=== PATIENT | male | born 1985 | race African-American/Black ===

== ENCOUNTER 2018-01-23 19:06 | Emergency (ER) | payer SELFPAY ==
[~2018-01-23 19:06] MED LIST: ACE325 PO; ACET500T68 PO; CALC-515 PO; CYCL10TA29 PO; DIA5 PO; DULO30CA35 PO; GABA-503 PO; GABA-549 PO; HYDR-3087 PO; HYDR-3250 PO; HYDR-385 PO; IBU800 PO; IBUP-1618 PO; IBUP200C71 PO; IBUP800T37 PO; KETO-58 PO; LOR5 PO; LOR5/325 PO; MENT1ADH TP; MET800 PO; NAPR500T31 PO; NO ROUTINE MEDS; ONDA4TAB PO; OXYC-373 PO; PER PO; PRE10 PO; PRED20TA6 PO; Return to work; TRAM-420 PO
--- NOTE | 2018-01-23 19:21 | ER Report ---
History and Physical Time Seen By MD: 19:21 Hx. of Stated Complaint: "I HAVE A ALCOHOL PROBLEM AND FEEL LIKE MY LIVER IS GOING TO " "I NEED HELP" HPI/ROS CHIEF COMPLAINT: Alcohol detox HISTORY OF PRESENT ILLNESS: 32-year-old male patient presents to emergency room with complaint of wanting to detox from alcohol. Patient states he drinks significantly every day and has for the past 1617 years. Patient states he typically will drink to 40s of beer as well as 12 shots of whiskey. Patient denies having any nausea, vomiting with this. Patient states that he has seen a primary care provider who did check labs. He was told by them that his liver is already damaged by this and he needs to quit drinking before his liver is permanently damage. Patient states that he has been having some abdominal pain, especially in the right upper and left upper walk since. Patient states that he was prescribed a medication for hypertension but has not taken it. REVIEW OF SYSTEMS: Respiratory: No cough, no dyspnea. Cardiovascular: No chest pain, no palpitations. Gastrointestinal: As noted above Musculoskeletal: No back pain. Allergies: Coded Allergies: ibuprofen (Verified Allergy, Intermediate, HIVES, 06/23/16) hydrocodone (Verified Adverse Reaction, Unknown, NAUSEA/VOMITING, 06/23/16) tramadol (Verified Adverse Reaction, Unknown, NAUSEA/VOMITING, 06/23/16) Home Meds Discontinued Scripts Oxycodone Hcl/Acetaminophen (OXYCODONE-ACETAMINOPHEN 5-325) 1 Each Tablet, 1-2 TAB PO Q6H Y for PAIN, #60 TAB 0 Refills Prov:[facility]I [facility]AM DNP, [facility] 07/16/16 Cyclobenzaprine Hcl (CYCLOBENZAPRINE HCL) 10 Mg Tablet, 10 MG PO TID for Muscle Relaxant, #30 TAB Prov:DEEPTHI GRESHAM DNP, FNP- 07/16/16 Gabapentin (GABAPENTIN) 600 Mg Tablet, 1 TAB PO BID, #60 TAB 1 Refill Prov:DEEPTHI GRESHAM DNP [facility] 07/16/16 Past Medical/Surgical History Patient has a past medical history of hypertension, back pain, marijuana and exceeded abuse in the past, alcohol use. Patient has no pertinent surgical history. Reviewed Nurses Notes: Yes Hx Smoking: Yes Smoking Status: Current: Every Day Smoker Exposure to Second Hand Smoke?: No Hx Substance Use Disorder: Yes (MARIJUANNA, AND ECSTASY IN THE PAST) Hx Alcohol Use: Yes (FREQUENTLY, ALMOST EVERY DAY) Constitutional Vital Sign - Last 24 Hours 01/23/18 19:14 Temp 98.4 Pulse 90 Resp 14 B/P (MAP) 160/107 Pulse Ox 95 O2 Delivery Room Air Physical Exam General Appearance: The patient is alert, has no immediate need for airway protection and no current signs of toxicity. ENT: Tympanic membranes are pearly-devi, auditory canals are patent, mucous membranes are moist. Respiratory: Chest is non tender, lungs are clear to auscultation. Cardiac: regular rate and rhythm Gastrointestinal: Abdomen is soft and mildly tender in the bilateral upper quadrants, no masses, bowel sounds normal. Musculoskeletal: Neck: Neck is supple and non tender. Extremities have full range of motion and are non tender. Skin: No rashes or lesions. DIFFERENTIAL DIAGNOSIS: After history and physical exam differential diagnosis was considered for alcohol abuse, depression, intoxication. Medical Decision Making Data Points Result Diagram: 01/23/18191901/23/181919 Laboratory Hematology Test 01/23/18 19:20 01/23/18 19:35 Red Blood Count 5.44 M/uL (4.00-5.60) Mean Corpuscular Volume 88.6 fL (80.0-96.0) Mean Corpuscular Hemoglobin 30.4 pg (26.0-33.0) Mean Corpuscular Hemoglobin Concent 34.3 g/dL (32.0-36.0) Red Cell Distribution Width 13.9 % (11.5-14.5) Mean Platelet Volume 8.2 fL (7.2-11.1) Neutrophils (%) (Auto) 48.2 % (39.4-72.5) Lymphocytes (%) (Auto) 35.1 % (17.6-49.6) Monocytes (%) (Auto) 14.5 % (4.1-12.4) Eosinophils (%) (Auto) 1.4 % (0.4-6.7) Basophils (%) (Auto) 0.8 % (0.3-1.4) Nucleated RBC Relative Count (auto) 0.1 /100WBC Neutrophils # (Auto) 3.3 K/uL (2.0-7.4) Lymphocytes # (Auto) 2.4 K/uL (1.3-3.6) Monocytes # (Auto) 1.0 K/uL (0.3-1.0) Eosinophils # (Auto) 0.1 K/uL (0.0-0.5) Basophils # (Auto) 0.1 K/uL (0.0-0.1) Nucleated RBC Absolute Count (auto) 0.00 K/uL Sodium Level 143 mmol/L (137-145) Potassium Level 2.9 mmol/L (3.5-5.0) Chloride Level 106 mmol/L (98-107) Carbon Dioxide Level 21 mmol/L (22-30) Blood Urea Nitrogen 6 mg/dl (9-21) Creatinine 0.80 mg/dl (0.66-1.25) Glomerular Filtration Rate Calc > 60.0 Random Glucose 94 mg/dl (75-110) Calcium Level 9.5 mg/dl (8.4-10.2) Magnesium Level 1.8 mg/dl (1.7-2.2) Total Bilirubin 0.6 mg/dl (0.2-1.3) Aspartate Amino Transf (AST/SGOT) 169 U/L (0-35) Alanine Aminotransferase (ALT/SGPT) 107 U/L (0-56) Alkaline Phosphatase 86 U/L (0-126) Total Protein 7.4 gm/dl (6.3-8.2) Albumin 4.1 g/dl (3.5-5.0) Amylase Level 95 U/L (0-110) Lipase 298 U/L (23-300) Salicylates Level < 10 mg/L Salicylate Last Dose Date unk Acetaminophen Level < 10 ug/ml Serum Alcohol 254 mg/dl Urine Color Straw Urine Clarity Clear Urine pH 6.0 pH (4.8-9.5) Urine Specific [place] 1.004 Urine Protein Negative mg/dL (NEGATIVE) Urine Glucose (UA) Negative mg/dL (NEGATIVE) Urine Ketones Negative mg/dL (NEGATIVE) Urine Blood Negative (NEGATIVE) Urine Nitrite Negative (NEGATIVE) Urine Bilirubin Negative (NEGATIVE) Urine Urobilinogen 4.0 mg/dL (0.2-1.9) Urine Leukocyte Esterase Negative (NEGATIVE) Urine RBC <1 /HPF (0-2/HPF) Urine WBC None /HPF (0-5/HPF) Urine Squamous Epithelial Cells None /LPF (</=FEW) Urine Bacteria Negative /HPF (NONE-FEW) Urine Mucus None /HPF (NONE-FEW) Urine Opiates Screen Negative Urine Barbiturates Screen Negative Ur Tricyclic Antidepressants Screen Negative Urine Phencyclidine Screen Negative Urine Amphetamines Screen Negative Urine Benzodiazepines Screen Negative Urine Cocaine Screen Negative Urine Cannabinoids Screen Negative Chemistry Test 01/23/18 19:20 01/23/18 19:35 White Blood Count 6.9 k/uL (4.5-11.0) Red Blood Count 5.44 M/uL (4.00-5.60) Hemoglobin 16.6 g/dL (14.0-18.0) Hematocrit 48.2 % (42.0-52.0) Mean Corpuscular Volume 88.6 fL (80.0-96.0) Mean Corpuscular Hemoglobin 30.4 pg (26.0-33.0) Mean Corpuscular Hemoglobin Concent 34.3 g/dL (32.0-36.0) Red Cell Distribution Width 13.9 % (11.5-14.5) Platelet Count 177 K/uL (150-450) Mean Platelet Volume 8.2 fL (7.2-11.1) Neutrophils (%) (Auto) 48.2 % (39.4-72.5) Lymphocytes (%) (Auto) 35.1 % (17.6-49.6) Monocytes (%) (Auto) 14.5 % (4.1-12.4) Eosinophils (%) (Auto) 1.4 % (0.4-6.7) Basophils (%) (Auto) 0.8 % (0.3-1.4) Nucleated RBC Relative Count (auto) 0.1 /100WBC Neutrophils # (Auto) 3.3 K/uL (2.0-7.4) Lymphocytes # (Auto) 2.4 K/uL (1.3-3.6) Monocytes # (Auto) 1.0 K/uL (0.3-1.0) Eosinophils # (Auto) 0.1 K/uL (0.0-0.5) Basophils # (Auto) 0.1 K/uL (0.0-0.1) Nucleated RBC Absolute Count (auto) 0.00 K/uL Glomerular Filtration Rate Calc > 60.0 Calcium Level 9.5 mg/dl (8.4-10.2) Magnesium Level 1.8 mg/dl (1.7-2.2) Total Bilirubin 0.6 mg/dl (0.2-1.3) Aspartate Amino Transf (AST/SGOT) 169 U/L (0-35) Alanine Aminotransferase (ALT/SGPT) 107 U/L (0-56) Alkaline Phosphatase 86 U/L (0-126) Total Protein 7.4 gm/dl (6.3-8.2) Albumin 4.1 g/dl (3.5-5.0) Amylase Level 95 U/L (0-110) Lipase 298 U/L (23-300) Salicylates Level < 10 mg/L Salicylate Last Dose Date unk Acetaminophen Level < 10 ug/ml Serum Alcohol 254 mg/dl Urine Color Straw Urine Clarity Clear Urine pH 6.0 pH (4.8-9.5) Urine Specific [place] 1.004 Urine Protein Negative mg/dL (NEGATIVE) Urine Glucose (UA) Negative mg/dL (NEGATIVE) Urine Ketones Negative mg/dL (NEGATIVE) Urine Blood Negative (NEGATIVE) Urine Nitrite Negative (NEGATIVE) Urine Bilirubin Negative (NEGATIVE) Urine Urobilinogen 4.0 mg/dL (0.2-1.9) Urine Leukocyte Esterase Negative (NEGATIVE) Urine RBC <1 /HPF (0-2/HPF) Urine WBC None /HPF (0-5/HPF) Urine Squamous Epithelial Cells None /LPF (</=FEW) Urine Bacteria Negative /HPF (NONE-FEW) Urine Mucus None /HPF (NONE-FEW) Urine Opiates Screen Negative Urine Barbiturates Screen Negative Ur Tricyclic Antidepressants Screen Negative Urine Phencyclidine Screen Negative Urine Amphetamines Screen Negative Urine Benzodiazepines Screen Negative Urine Cocaine Screen Negative Urine Cannabinoids Screen Negative Toxicology Test 01/23/18 19:20 01/23/18 19:35 Salicylates Level < 10 mg/L Salicylate Last Dose Date unk Acetaminophen Level < 10 ug/ml Serum Alcohol 254 mg/dl Urine Opiates Screen Negative Urine Barbiturates Screen Negative Ur Tricyclic Antidepressants Screen Negative Urine Phencyclidine Screen Negative Urine Amphetamines Screen Negative Urine Benzodiazepines Screen Negative Urine Cocaine Screen Negative Urine Cannabinoids Screen Negative Urinalysis Test 01/23/18 19:35 Urine Color Straw Urine Clarity Clear Urine pH 6.0 pH (4.8-9.5) Urine Specific [place] 1.004 Urine Protein Negative mg/dL (NEGATIVE) Urine Glucose (UA) Negative mg/dL (NEGATIVE) Urine Ketones Negative mg/dL (NEGATIVE) Urine Blood Negative (NEGATIVE) Urine Nitrite Negative (NEGATIVE) Urine Bilirubin Negative (NEGATIVE) Urine Urobilinogen 4.0 mg/dL (0.2-1.9) Urine Leukocyte Esterase Negative (NEGATIVE) Urine RBC <1 /HPF (0-2/HPF) Urine WBC None /HPF (0-5/HPF) Urine Squamous Epithelial Cells None /LPF (</=FEW) Urine Bacteria Negative /HPF (NONE-FEW) Urine Mucus None /HPF (NONE-FEW) ED Course/Re-evaluation ED Course Patient was admitted exam room, history and physical were obtained. Differential diagnoses were considered. On examination patient is intoxicated, does have slightly slurred speech, does smell of alcohol. Patient initially states that he would like to be admitted to [facility]. The lab work for a behavioral [facility] was ordered. Results came back he did have a low potassium of 2.9. He received a potassium 20 mEq tablet here in the emergency room. Patient did discuss with the psychiatric mental health nurse from the behavioral health unit. He was bucking at signing him. He states that he was not ready to commit to being put into a locked unit. He states it is very similar to when he had his DUI. He states he is struggling with the breakup with his significant other. He is unsure. I did give him some additional time to think about whether he wanted to be admitted one to go home. He ultimately decided that he would like to go home. We'll go ahead and treat him with potassium for his low potassium. I would like him follow-up with his primary care provider the next 3-5 days for further evaluation and repeat that test. Discussed this with the patient who verbalized understanding and agreement with plan. Decision to Disposition Date: January 23, 2018 Decision to Disposition Time: 20:58 Depart Departure Latest Vital Signs Vital Signs Date Time Temp Pulse Resp B/P (MAP) Pulse Ox O2 Delivery O2 Flow Rate FiO2 01/23/18 19:14 98.4 90 14 160/107 95 Room Air Impression: Primary Impression: Alcohol intoxication Additional Impression: Hypokalemia Condition: Condition Unchanged Disposition: HOME OR SELF-CARE Referrals: DEEPTHI GRESHAM DNP, [facility] (PCP) New Scripts Potassium Chloride (KLOR-CON M20) 20 Meq Tab.er.prt 20 MEQ PO QDAY, #30 TAB.SR.24H Prov: RAVEN SANABRIA 01/23/18 Patient Instructions: Alcohol Intoxication (ED) Additional Instructions: Continue with normal diet. Avoid alcohol. Return to the ER if condition worsens. Take medication as prescribed. Follow up with your primary care provider in the next 1-2 weeks. Get plenty of rest. You may follow up with [facility] for assistance with alcohol withdrawal, ie counseling. Problem Qualifiers Primary Impression: Alcohol intoxication Complication of substance-induced condition: uncomplicated Qualified Codes: F10.920 - Alcohol use, unspecified with intoxication, uncomplicated RAVEN SANABRIA January 23, 2018 19:21
[2018-01-23 19:45] LABS: PLATELET COUNT, AUTOMATED 177 K/uL (150-450)
[2018-01-23] MEDS ORDERED: POTASSIUM CHL 20 MEQ TABCR PO ONE (20:00)
[2018-01-23 20:30] VITALS: BP 151/91
[2018-01-23] MEDS ORDERED: POTA20TA85 PO (21:02)
== END 2018-01-23 21:13 | disposition home or self-care (01) ==
LOC: ER 19:33
DX: F10.920 Alcohol use, unspecified with intoxication, uncomplicated (principal); E87.6 Hypokalemia; I10 Essential (primary) hypertension
CPT/HCPCS: 36415; 80305; 80320; 80329; 81001; 82040; 82150; 82247; 82310; 82374; 82435; 82565; 82947; 83690; 83735; 84075; 84132; 84155; 84295; 84443; 84450; 84460; 84520; 85025; 99283

== ENCOUNTER 2018-03-15 17:14 | Emergency (ER) | payer SELFPAY ==
[~2018-03-15 17:14] MED LIST changes: +POTA20TA85 PO
--- NOTE | 2018-03-15 17:24 | ER Report ---
History and Physical Time Seen By MD: 17:23 HPI/ROS CHIEF COMPLAINT: Shortness of breath HISTORY OF PRESENT ILLNESS: This is a 32-year-old male presents to the emergency department for shortness of breath. Patient states that would last several days he's had an increase in shortness breath more so today since about 9:00 this morning. Patient also states over the last 2-3 days he's had some increased chest pain bandlike across to his anterior chest. Patient states he has high anxiety, has a lot of life stressors right now and thinks this could be related to his anxiety but is unsure. Patient was sent from the [facility] today. Patient also states that he started a new blood pressure medication today and is unsure what the medication is. Patient also states that he has had issues with drinking L call in the past, the last time he had anything to drink was about 3 days ago. No vomiting however he does have nausea intermittently. No dysuria or diarrhea or blood in the stools. No fevers or chills. No headaches. No rashes. REVIEW OF SYSTEMS: Constitutional: No fever, no chills. Eyes: No discharge. ENT: No sore throat. Cardiovascular: As above. Respiratory: As above. Gastrointestinal: No abdominal pain, no vomiting. Genitourinary: No hematuria. Musculoskeletal: No back pain. Skin: No rashes. Neurological: No headache. Allergies: Coded Allergies: ibuprofen (Verified Allergy, Intermediate, HIVES, 03/15/18) hydrocodone (Verified Adverse Reaction, Unknown, NAUSEA/VOMITING, 03/15/18) tramadol (Verified Adverse Reaction, Unknown, NAUSEA/VOMITING, 03/15/18) Home Meds Reported Medications [Bp Med] No Conflict Check 03/15/18 Discontinued Scripts Potassium Chloride (KLOR-CON M20) 20 Meq Tab.er.prt, 20 MEQ PO QDAY, #30 TAB.SR.24H Prov:RAVEN SANABRIA 01/23/18 Past Medical/Surgical History Patient has a past medical and surgical history of hypertension, back pain, polysubstance abuse, alcohol abuse, anxiety, Reviewed Nurses Notes: Yes Hx Smoking: Yes Smoking Status: Current: Every Day Smoker Exposure to Second Hand Smoke?: No Hx Substance Use Disorder: Yes (MARIJUANNA, AND ECSTASY IN THE PAST) Hx Alcohol Use: Yes (FREQUENTLY, ALMOST EVERY DAY) Constitutional Vital Sign - Last 24 Hours 03/15/18 03/15/18 03/15/18 03/15/18 17:20 17:23 17:26 17:30 Temp 98.8 Pulse 78 Resp 20 B/P (MAP) 147/94 (111) 147/94 149/94 (112) 147/93 (111) Pulse Ox 94 O2 Delivery Room Air 03/15/18 03/15/18 03/15/18 03/15/18 17:44 18:00 18:14 18:19 Pulse 59 55 ??? Resp 11 7 16 B/P (MAP) 123/82 (96) Pulse Ox 97 98 99 03/15/18 03/15/18 03/15/18 03/15/18 18:30 18:49 19:00 19:04 Pulse 64 ??? Resp 15 21 B/P (MAP) 135/118 (124) 143/105 (118) Pulse Ox 97 97 03/15/18 03/15/18 03/15/18 03/15/18 19:19 19:30 19:34 19:49 Pulse ??? 62 75 Resp 9 18 B/P (MAP) 157/116 (130) Pulse Ox 96 97 03/15/18 03/15/18 20:00 20:04 Pulse 65 Resp 16 B/P (MAP) 146/122 (130) Pulse Ox 97 Physical Exam General Appearance: The patient is alert, has no immediate need for airway protection and no signs of toxicity. Eyes: Pupils equal and round no pallor or injection. ENT, Mouth: Mucous membranes are dry. Respiratory: There are no retractions, lungs are clear to auscultation. Cardiovascular: Regular rate and rhythm, no murmurs, clicks or rubs. Gastrointestinal: Abdomen is soft and non tender, no masses, bowel sounds normal. Neurological: Alert and oriented 4. Moving all extremities. Following all commands. No focal neuro deficits. Skin: Warm and dry, no rashes. Musculoskeletal: Neck is supple non tender. Extremities are nontender, nonswollen and have full range of motion. DIFFERENTIAL DIAGNOSIS: After history and physical exam differential diagnosis was considered for shortness of breath including but not limited to pulmonary infectious process, COPD, asthma, pulmonary embolus and congestive heart failure. Medical Decision Making Data Points Result Diagram: 03/15/18 17503/15/18 175 Laboratory Hematology Test 03/15/18 17:50 Red Blood Count 5.46 M/uL (4.00-5.60) Mean Corpuscular Volume 89.3 fL (80.0-96.0) Mean Corpuscular Hemoglobin 31.1 pg (26.0-33.0) Mean Corpuscular Hemoglobin Concent 34.9 g/dL (32.0-36.0) Red Cell Distribution Width 14.0 % (11.5-14.5) Mean Platelet Volume 8.1 fL (7.2-11.1) Neutrophils (%) (Auto) 29.2 % (39.4-72.5) Lymphocytes (%) (Auto) 51.9 % (17.6-49.6) Monocytes (%) (Auto) 16.0 % (4.1-12.4) Eosinophils (%) (Auto) 1.4 % (0.4-6.7) Basophils (%) (Auto) 1.5 % (0.3-1.4) Nucleated RBC Relative Count (auto) 0.0 /100WBC Neutrophils # (Auto) 1.2 K/uL (2.0-7.4) Lymphocytes # (Auto) 2.1 K/uL (1.3-3.6) Monocytes # (Auto) 0.7 K/uL (0.3-1.0) Eosinophils # (Auto) 0.1 K/uL (0.0-0.5) Basophils # (Auto) 0.1 K/uL (0.0-0.1) Nucleated RBC Absolute Count (auto) 0.00 K/uL D-Dimer Quantitative (PE/DVT) 0.99 ug/ml (0-0.50) Sodium Level 146 mmol/L (137-145) Potassium Level 3.1 mmol/L (3.5-5.0) Chloride Level 109 mmol/L (98-107) Carbon Dioxide Level 24 mmol/L (22-30) Blood Urea Nitrogen 6 mg/dl (9-21) Creatinine 0.70 mg/dl (0.66-1.25) Glomerular Filtration Rate Calc > 60.0 Random Glucose 98 mg/dl (75-110) Calcium Level 8.8 mg/dl (8.4-10.2) Total Bilirubin 0.7 mg/dl (0.2-1.3) Aspartate Amino Transf (AST/SGOT) 215 U/L (0-35) Alanine Aminotransferase (ALT/SGPT) 118 U/L (0-56) Alkaline Phosphatase 110 U/L (0-126) Troponin I < 0.012 ng/ml Total Protein 7.4 g/dl (6.3-8.2) Albumin 4.1 g/dl (3.5-5.0) Serum Alcohol 289 mg/dl Chemistry Test 03/15/18 17:50 White Blood Count 4.1 k/uL (4.5-11.0) Red Blood Count 5.46 M/uL (4.00-5.60) Hemoglobin 17.0 g/dL (14.0-18.0) Hematocrit 48.7 % (42.0-52.0) Mean Corpuscular Volume 89.3 fL (80.0-96.0) Mean Corpuscular Hemoglobin 31.1 pg (26.0-33.0) Mean Corpuscular Hemoglobin Concent 34.9 g/dL (32.0-36.0) Red Cell Distribution Width 14.0 % (11.5-14.5) Platelet Count 189 K/uL (150-450) Mean Platelet Volume 8.1 fL (7.2-11.1) Neutrophils (%) (Auto) 29.2 % (39.4-72.5) Lymphocytes (%) (Auto) 51.9 % (17.6-49.6) Monocytes (%) (Auto) 16.0 % (4.1-12.4) Eosinophils (%) (Auto) 1.4 % (0.4-6.7) Basophils (%) (Auto) 1.5 % (0.3-1.4) Nucleated RBC Relative Count (auto) 0.0 /100WBC Neutrophils # (Auto) 1.2 K/uL (2.0-7.4) Lymphocytes # (Auto) 2.1 K/uL (1.3-3.6) Monocytes # (Auto) 0.7 K/uL (0.3-1.0) Eosinophils # (Auto) 0.1 K/uL (0.0-0.5) Basophils # (Auto) 0.1 K/uL (0.0-0.1) Nucleated RBC Absolute Count (auto) 0.00 K/uL D-Dimer Quantitative (PE/DVT) 0.99 ug/ml (0-0.50) Glomerular Filtration Rate Calc > 60.0 Calcium Level 8.8 mg/dl (8.4-10.2) Total Bilirubin 0.7 mg/dl (0.2-1.3) Aspartate Amino Transf (AST/SGOT) 215 U/L (0-35) Alanine Aminotransferase (ALT/SGPT) 118 U/L (0-56) Alkaline Phosphatase 110 U/L (0-126) Troponin I < 0.012 ng/ml Total Protein 7.4 g/dl (6.3-8.2) Albumin 4.1 g/dl (3.5-5.0) Serum Alcohol 289 mg/dl Coagulation Test 03/15/18 17:50 D-Dimer Quantitative (PE/DVT) 0.99 ug/ml Toxicology Test 03/15/18 17:50 Serum Alcohol 289 mg/dl EKG/Imaging EKG Interpretation 12 lead EKG: Time of EKG 1751. Rhythm: Normal sinus rhythm, ventricular rate 66 bpm. [place]: normal QRS: normal ST segments: Probable early repolarization, with J-point elevation in V2 V3. No ST elevation or depression identified. Imaging Location: [facility] [place] Patient: Ezekiel Unger : 1985 Visit/Account:[id number] Date of Sevice: 03/15/2018 Chest 2 views: HISTORY: Started new blood pressure meds this morning patient states "doesn't feel right" COMPARISON: None. FINDINGS: Frontal and lateral chest: Cardiomediastinal silhouette is within normal limits. There is no infiltrate or pleural effusion. No pneumothorax. Pulmonary vasculature is normal. Osseous structures are unremarkable. IMPRESSION: No evidence of acute cardiopulmonary abnormality. Report Dictated By: Jenna Pennington MD at 03/15/2018 7:12 PM Report E-Signed By: Jenna Pennington MD at 03/15/2018 7:14 PM [id number] EXAMINATION: CTA of the chest with IV contrast HISTORY: Started new blood pressure medication this morning. "Doesn't feel right." Evaluate for pulmonary embolism. TECHNIQUE: Pulmonary embolus protocol - Thin axial CT images of the chest were obtained with IV contrast during maximal pulmonary arterial opacification. Reconstruction of the source data includes multiplanar 2D coronal and sagittal reconstructed images, and 3D coronal and sagittal MIP images. [employer] images have been stored on PACS. One of the following dose optimization techniques was utilized in the performance of this exam: Automated exposure control; adjustment of the mA and/ or kV according to the patient's size; or use of an iterative reconstruction technique. Specific details can be referenced in the facility's radiology CT exam operational policy. Contrast: 75 mL of IV Isovue-370. COMPARISON: None. FINDINGS: Pulmonary arteries: The pulmonary arteries are well opacified, without suspicious filling defect. Heart, aorta, and great vessels: Normal caliber thoracic aorta. Normal heart size. No pericardial effusion. Lungs and pleura: The lungs are clear. No focal consolidation. No pleural effusion or pneumothorax. The central airways are patent. Mediastinum and matt: Negative. Visualized upper abdomen: Fatty infiltration of the liver. Chest wall: Negative. Bones: Negative. IMPRESSION: 1. No evidence of pulmonary embolism. 2. No other acute findings in the chest. The lungs are clear. 3. Diffuse hepatic steatosis. Report Dictated By: Santino Celis MD at 03/15/2018 7:42 PM Report E-Signed By: Santino Celis MD at 03/15/2018 7:46 PM [id number] ED Course/Re-evaluation Clinical Indication for ER IV: Hydration, IV Access ED Course The patient was admitted to a room. A history physical were obtained. Differential diagnoses were considered. An IV was started. A CBC, CMP, d-dimer and troponin were obtained. CBC showing wbc's 4.1, chemistry showing sodium 146 , potassium 3.1 AST 2:15, ALT 118 d-dimer 0.99 serum alcohol 289. Patient did tell me that his last alcohol intake was 2-3 days ago. Two-view chest x-ray was negative for any acute cardiopulmonary processes. CTA of the chest was negative for pulmonary embolus. I did review these results with the patient. I did also tell the patient that his serum alcohol was elevated, he did tell me that he did do some sugars today, he said "I'm sorry I didn't tell you the truth earlier ". I did tell patient that the chest pain that he is experiencing today could be secondary to his anxiety as well as the blood pressure medications as body adjusting to these, I also instructed patient to follow up with his psychiatrist as scheduled tomorrow as well as his counselor on Tuesday. I instructed the patient to try to cut back on his alcohol consumption. Patient expressed understanding, had no other questions or concerns at this time and was discharged home. 03/15/2018 6:46:44 pm I did review the lab studies with the patient, in particular the elevated d-dimer at syrup 0.99. I did tell the patient that with the elevation and the d-dimer as well as his shortness of breath go ahead and proceed with a CT of the chest looking for a clot. Patient is in agreement with this plan of care. Patient is also sitting up in bed, playing chess with a friend, laughing, does not appear to be in any distress. Decision to Disposition Date: Mar 15, 2018 Decision to Disposition Time: 19:59 Depart Departure Latest Vital Signs Vital Signs Date Time Temp Pulse Resp B/P (MAP) Pulse Ox O2 Delivery O2 Flow Rate FiO2 03/15/18 20:04 65 16 97 03/15/18 20:00 146/122 (130) 03/15/18 17:23 98.8 Room Air Impression: Primary Impression: Alcohol abuse Additional Impressions: Anxiety Hypertension Condition: Improved Disposition: HOME OR SELF-CARE Patient Instructions: Abuse of Alcohol (ED), Anxiety (ED), Hypertension (ED) Additional Instructions: Drink plenty of water, especially if your working outside. Get plenty of rest. Continue taking the blood pressure medications as prescribed. Follow-up with your psychologist tomorrow as scheduled. Continue trying to cut back on your alcohol use. Follow-up with your counseling as scheduled on Tuesday. Return to the emergency department for any other concerns or worsening symptoms. Problem Qualifiers Additional Impressions: Hypertension Hypertension type: unspecified Qualified Codes: I10 - Essential (primary) hypertension JENNIFER ASTORGA [facility]ED [facility] Mar 15, 2018 17:24
[2018-03-15] MEDS ORDERED: BP MED (17:30)
[2018-03-15] MEDS ORDERED: NS(*) 0.9% 1000 ML BAG 1,000 ML IV ONE (17:42)
--- NOTE | 2018-03-15 17:56 | EKG ---
FACILITY: [facility] - [place] PATIENT NAME: FIORELLA ALANIZ : [id number] MR: [id number] V: [id number] EXAM DATE: ORDERING PHYSICIAN: JENNIFER ASTORGA TECHNOLOGIST: DARRELL Blue Reason : SOB Blood Pressure : / mmHG Vent. Rate : 066 BPM Atrial Rate : 066 BPM P-R Int : 174 ms QRS Dur : 080 ms QT Int : 410 ms P-R-T Axes : 080 054 068 degrees QTc Int : 429 ms Normal sinus rhythm Septal infarct , age undetermined vs lead placement No ST-T abnormalities No previous ECGs available Confirmed by VIRGILIO SHAHID ([id number]) on 03/15/2018 6:59:39 PM Referred By: Confirmed By:VIRGILIO SHAHID
[2018-03-15 18:06] LABS: PLATELET COUNT, AUTOMATED 189 K/uL (150-450)
[2018-03-15] MEDS ORDERED: NS 0.9% 25 ML BAG 50 ML ONE (18:59)
[2018-03-15] MEDS ORDERED: IOPAMIDOL 76% 75 ML INFUS BTL 75 ML ONE (18:59)
--- NOTE | 2018-03-15 19:17 | RADIOLOGY IMAGING REPORT ---
FACILITY: [facility] PATIENT NAME: Ezekiel Unger : 1985 MR: [id number] V: [id number] EXAM DATE: ORDERING PHYSICIAN: JENNIFER ASTORGA TECHNOLOGIST: Location: [facility] - [place] Patient: Ezekiel Unger : 1985 Visit/Account:[id number] Date of Sevice: 03/15/2018 Chest 2 views: HISTORY: Started new blood pressure meds this morning patient states "doesn't feel right" COMPARISON: None. FINDINGS: Frontal and lateral chest: Cardiomediastinal silhouette is within normal limits. There is n o infiltrate or pleural effusion. No pneumothorax. Pulmonary vasculature is normal. Osseous structures are unremarkable. IMPRESSION: No evidence of acute cardiopulmonary abnormality. Report Dictated By: Jenna Pennington MD at 03/15/2018 7:12 PM Report E-Signed By: Jenna Pennington MD at 03/15/2018 7:14 PM WSN:[id number]
--- NOTE | 2018-03-15 19:49 | RADIOLOGY IMAGING REPORT ---
FACILITY: [facility] - [place] PATIENT NAME: Ezekiel Unger : 1985 MR: [id number] V: [id number] EXAM DATE: ORDERING PHYSICIAN: JENNIFER ASTORGA TECHNOLOGIST: Location: [facility] [place] Patient: Ezekiel Unger : 1985 Visit/Account:[id number] Date of Sevice: 03/15/2018 EXAMINATION: CTA of the chest with IV contrast HISTORY: Started new blood pressure medication this morning. "Doesn't feel right." Evaluate for pulm onary embolism. TECHNIQUE: Pulmonary embolus protocol - Thin axial CT images of the chest were obtained with IV con trast during maximal pulmonary arterial opacification. Reconstruction of the source data includes mul tiplanar 2D coronal and sagittal reconstructed images, and 3D coronal and sagittal MIP images. Repres entative images have been stored on PACS. One of the following dose optimization techniques was utilized in the performance of this exam: Autom ated exposure control; adjustment of the mA and/or kV according to the patient's size; or use of an i terative reconstruction technique. Specific details can be referenced in the facility's radiology C T exam operational policy. Contrast: 75 mL of IV [id number]. COMPARISON: None. FINDINGS: Pulmonary arteries: The pulmonary arteries are well opacified, without suspicious filling defect. Heart, aorta, and great vessels: Normal caliber thoracic aorta. Normal heart size. No pericardial ef fusion. Lungs and pleura: The lungs are clear. No focal consolidation. No pleural effusion or pneumothorax. The central airways are patent. Mediastinum and matt: Negative. Visualized upper abdomen: Fatty infiltration of the liver. Chest wall: Negative. Bones: Negative. IMPRESSION: 1. No evidence of pulmonary embolism. 2. No other acute findings in the chest. The lungs are clear. 3. Diffuse hepatic steatosis. Report Dictated By: Santino Celis MD at 03/15/2018 7:42 PM Report E-Signed By: Santino Celis MD at 03/15/2018 7:46 PM WSN:[id number]
[2018-03-15 20:00] VITALS: BP 146/122
== END 2018-03-15 20:22 | disposition home or self-care (01) ==
LOC: ER 17:21
DX: F10.129 Alcohol abuse with intoxication, unspecified (principal); Y90.8 Blood alcohol level of 240 mg/100 ml or more; F41.9 Anxiety disorder, unspecified; I10 Essential (primary) hypertension
CPT/HCPCS: 71046; 71275; 80320; 84484; 85025; 85379; 93005; 96360; 99284; J7030; Q9967; 82040; 82247; 82310; 82374; 82435; 82565; 82947; 84075; 84132; 84155; 84295; 84450; 84460; 84520

== ENCOUNTER 2018-05-01 16:16 | Emergency (ER) | payer SELFPAY ==
[2018-05-01] MEDS ORDERED: LORazepam 2 MG/ML VIAL IVP ONE (16:45)
--- NOTE | 2018-05-01 16:55 | ER Report ---
History and Physical Time Seen By MD: 16:30 Hx. of Stated Complaint: WITNESSED SEIZURE WHILE PLAYING VIDEO GAMES. ROOMMATE REPORTS IT LASTED APPROX 45 SECONDS HPI/ROS CHIEF COMPLAINT: seizure HISTORY OF PRESENT ILLNESS: Patient is a daily drinker usual intake is a 40-oz and a couple shots who has been trying to cut back on his drinking, 2 days ago admits to going through withdrawal symptoms that included headache, nausea, generally not feeling well; yesterday had some whiskey and beer to begin feeling better, awoke this morning again not feeling well so had a couple shots and ate some pizza. This afternoon he was playing video games when his roommate noticed that he had a generalized tonic-clonic seizure activity that lasted approximately one minute. The patient does not recall this event but recalls awakening with 2 supervisor housecleaner sit next to him on the couch. Patient now complains of nausea as he vomited multiple times after the seizure and general malaise. Patient notes that he must have bitten tongue. And complains of calf pain and tightness. He also complains of mild headache. Patient is trying to quit because he knows that he uses alcohol to deal with issues in his life and is trying to improve how he feels. He denies suicidal ideations. He has never had seizure activity previously. He is not currently taking any medications does smoke tobacco and denies drug use. REVIEW OF SYSTEMS: Constitutional: No fever, no chills. Eyes: No discharge. ENT: No sore throat. Cardiovascular: No chest pain, no palpitations. Respiratory: No cough, no shortness of breath. Gastrointestinal: above Genitourinary: No hematuria. Musculoskeletal: No back pain; calf pain as above; no shoulder pain Skin: No rashes. Neurological: mild cee Remainder of the 14 system rev: Yes Allergies: Coded Allergies: ibuprofen (Verified Allergy, Intermediate, HIVES, 03/15/18) hydrocodone (Verified Adverse Reaction, Unknown, NAUSEA/VOMITING, 03/15/18) tramadol (Verified Adverse Reaction, Unknown, NAUSEA/VOMITING, 03/15/18) Home Meds Discontinued Reported Medications [Bp Med] No Conflict Check 03/15/18 Reviewed Nurses Notes: Yes Old Medical Records Reviewed: Yes Hx Smoking: Yes Smoking Status: Current: Every Day Smoker Exposure to Second Hand Smoke?: No Hx Substance Use Disorder: No (MARIJUANNA, AND ECSTASY IN THE PAST) Hx Alcohol Use: Yes (Q4D 40 OZ AND 2 SHOTS) Constitutional Vital Sign - Last 24 Hours 05/01/18 05/01/18 05/01/18 05/01/18 16:20 16:30 17:00 17:30 Temp 98.5 Pulse 108 101 90 85 Resp 20 19 16 13 B/P (MAP) 165/108 164/104 (124) 157/102 (120) 148/101 (117) Pulse Ox 94 96 98 O2 Delivery Room Air Physical Exam General Appearance: [The patient is alert, has no immediate need for airway protection and no signs of toxicity.] Pt appears mildly uncomfortable Pupils equal and round no pallor or injection. No nystagmus ENT, Mouth: Mucous membranes are moist. Tongue contusions bilaterally from tongue biting Respiratory: There are no retractions, lungs are clear to auscultation. Cardiovascular: tachycardic to 110, rr, no m/r/g Gastrointestinal: Abdomen is soft; mild general tendeness, no masses, bowel sounds normal. Neurological: alert, oriented x 3, though appears sleepy; cn intact, cerebellar nl Skin: Warm and dry, no rashes. no sgs injury Musculoskeletal: Neck is supple non tender. Extremities; mild calf ttp bilaterally; nonswollen and have full range of motion. DIFFERENTIAL DIAGNOSIS: After history and physical exam differential diagnosis was considered for a seizure including but not limited to electrolyte abnormality, alcohol withdrawal, medication noncompliance, head injury, and breakthrough seizure. Medical Decision Making Data Points Result Diagram: 05/01/18 1656 05/01/18 1656 Laboratory Hematology Test 05/01/18 16:56 05/01/18 17:06 Red Blood Count 5.54 M/uL (4.00-5.60) Mean Corpuscular Volume 89.8 fL (80.0-96.0) Mean Corpuscular Hemoglobin 31.2 pg (26.0-33.0) Mean Corpuscular Hemoglobin Concent 34.7 g/dL (32.0-36.0) Red Cell Distribution Width 13.7 % (11.5-14.5) Mean Platelet Volume 8.6 fL (7.2-11.1) Neutrophils (%) (Auto) 75.7 % (39.4-72.5) Lymphocytes (%) (Auto) 12.8 % (17.6-49.6) Monocytes (%) (Auto) 10.9 % (4.1-12.4) Eosinophils (%) (Auto) 0.2 % (0.4-6.7) Basophils (%) (Auto) 0.4 % (0.3-1.4) Nucleated RBC Relative Count (auto) 0.0 /100WBC Neutrophils # (Auto) 3.4 K/uL (2.0-7.4) Lymphocytes # (Auto) 0.6 K/uL (1.3-3.6) Monocytes # (Auto) 0.5 K/uL (0.3-1.0) Eosinophils # (Auto) 0.0 K/uL (0.0-0.5) Basophils # (Auto) 0.0 K/uL (0.0-0.1) Nucleated RBC Absolute Count (auto) 0.00 K/uL Peripheral Blood Smear Yes Y/N Sodium Level 134 mmol/L (137-145) Potassium Level 3.1 mmol/L (3.5-5.0) Chloride Level 98 mmol/L (98-107) Carbon Dioxide Level 23 mmol/L (22-30) Blood Urea Nitrogen 5 mg/dl (9-21) Creatinine 0.70 mg/dl (0.66-1.25) Glomerular Filtration Rate Calc > 60.0 Random Glucose 135 mg/dl (75-110) Calcium Level 9.5 mg/dl (8.4-10.2) Phosphorus Level 2.3 mg/dl (2.5-4.5) Magnesium Level 1.5 mg/dl (1.7-2.2) Total Bilirubin 1.4 mg/dl (0.2-1.3) Aspartate Amino Transf (AST/SGOT) 146 U/L (0-35) Alanine Aminotransferase (ALT/SGPT) 105 U/L (0-56) Alkaline Phosphatase 103 U/L (0-126) Total Protein 7.5 g/dl (6.3-8.2) Albumin 4.3 g/dl (3.5-5.0) Serum Alcohol < 10 mg/dl Urine Color Yellow Urine Clarity Clear Urine pH 8.0 pH (4.8-9.5) Urine Specific [place] 1.012 Urine Protein 30 mg/dL (NEGATIVE) Urine Glucose (UA) Negative mg/dL (NEGATIVE) Urine Ketones Trace mg/dL (NEGATIVE) Urine Blood Small (NEGATIVE) Urine Nitrite Negative (NEGATIVE) Urine Bilirubin Negative (NEGATIVE) Urine Urobilinogen Negative mg/dL (0.2-1.9) Urine Leukocyte Esterase Negative (NEGATIVE) Urine RBC 1 /HPF (0-2/HPF) Urine WBC 2 /HPF (0-5/HPF) Urine Squamous Epithelial Cells Few /LPF (</=FEW) Urine Bacteria Few /HPF (NONE-FEW) Urine Hyaline Casts Many /LPF (NONE-FEW) Urine Mucus Few /HPF (NONE-FEW) Urine Opiates Screen Negative Urine Barbiturates Screen Negative Ur Tricyclic Antidepressants Screen Negative Urine Phencyclidine Screen Negative Urine Amphetamines Screen Negative Urine Benzodiazepines Screen Negative Urine Cocaine Screen Negative Urine Cannabinoids Screen Negative Chemistry Test 05/01/18 16:56 05/01/18 17:06 White Blood Count 4.5 k/uL (4.5-11.0) Red Blood Count 5.54 M/uL (4.00-5.60) Hemoglobin 17.3 g/dL (14.0-18.0) Hematocrit 49.8 % (42.0-52.0) Mean Corpuscular Volume 89.8 fL (80.0-96.0) Mean Corpuscular Hemoglobin 31.2 pg (26.0-33.0) Mean Corpuscular Hemoglobin Concent 34.7 g/dL (32.0-36.0) Red Cell Distribution Width 13.7 % (11.5-14.5) Platelet Count 155 K/uL (150-450) Mean Platelet Volume 8.6 fL (7.2-11.1) Neutrophils (%) (Auto) 75.7 % (39.4-72.5) Lymphocytes (%) (Auto) 12.8 % (17.6-49.6) Monocytes (%) (Auto) 10.9 % (4.1-12.4) Eosinophils (%) (Auto) 0.2 % (0.4-6.7) Basophils (%) (Auto) 0.4 % (0.3-1.4) Nucleated RBC Relative Count (auto) 0.0 /100WBC Neutrophils # (Auto) 3.4 K/uL (2.0-7.4) Lymphocytes # (Auto) 0.6 K/uL (1.3-3.6) Monocytes # (Auto) 0.5 K/uL (0.3-1.0) Eosinophils # (Auto) 0.0 K/uL (0.0-0.5) Basophils # (Auto) 0.0 K/uL (0.0-0.1) Nucleated RBC Absolute Count (auto) 0.00 K/uL Peripheral Blood Smear Yes Y/N Glomerular Filtration Rate Calc > 60.0 Calcium Level 9.5 mg/dl (8.4-10.2) Phosphorus Level 2.3 mg/dl (2.5-4.5) Magnesium Level 1.5 mg/dl (1.7-2.2) Total Bilirubin 1.4 mg/dl (0.2-1.3) Aspartate Amino Transf (AST/SGOT) 146 U/L (0-35) Alanine Aminotransferase (ALT/SGPT) 105 U/L (0-56) Alkaline Phosphatase 103 U/L (0-126) Total Protein 7.5 g/dl (6.3-8.2) Albumin 4.3 g/dl (3.5-5.0) Serum Alcohol < 10 mg/dl Urine Color Yellow Urine Clarity Clear Urine pH 8.0 pH (4.8-9.5) Urine Specific [place] 1.012 Urine Protein 30 mg/dL (NEGATIVE) Urine Glucose (UA) Negative mg/dL (NEGATIVE) Urine Ketones Trace mg/dL (NEGATIVE) Urine Blood Small (NEGATIVE) Urine Nitrite Negative (NEGATIVE) Urine Bilirubin Negative (NEGATIVE) Urine Urobilinogen Negative mg/dL (0.2-1.9) Urine Leukocyte Esterase Negative (NEGATIVE) Urine RBC 1 /HPF (0-2/HPF) Urine WBC 2 /HPF (0-5/HPF) Urine Squamous Epithelial Cells Few /LPF (</=FEW) Urine Bacteria Few /HPF (NONE-FEW) Urine Hyaline Casts Many /LPF (NONE-FEW) Urine Mucus Few /HPF (NONE-FEW) Urine Opiates Screen Negative Urine Barbiturates Screen Negative Ur Tricyclic Antidepressants Screen Negative Urine Phencyclidine Screen Negative Urine Amphetamines Screen Negative Urine Benzodiazepines Screen Negative Urine Cocaine Screen Negative Urine Cannabinoids Screen Negative Toxicology Test 05/01/18 16:56 05/01/18 17:06 Serum Alcohol < 10 mg/dl Urine Opiates Screen Negative Urine Barbiturates Screen Negative Ur Tricyclic Antidepressants Screen Negative Urine Phencyclidine Screen Negative Urine Amphetamines Screen Negative Urine Benzodiazepines Screen Negative Urine Cocaine Screen Negative Urine Cannabinoids Screen Negative Urinalysis Test 05/01/18 17:06 Urine Color Yellow Urine Clarity Clear Urine pH 8.0 pH (4.8-9.5) Urine Specific [place] 1.012 Urine Protein 30 mg/dL (NEGATIVE) Urine Glucose (UA) Negative mg/dL (NEGATIVE) Urine Ketones Trace mg/dL (NEGATIVE) Urine Blood Small (NEGATIVE) Urine Nitrite Negative (NEGATIVE) Urine Bilirubin Negative (NEGATIVE) Urine Urobilinogen Negative mg/dL (0.2-1.9) Urine Leukocyte Esterase Negative (NEGATIVE) Urine RBC 1 /HPF (0-2/HPF) Urine WBC 2 /HPF (0-5/HPF) Urine Squamous Epithelial Cells Few /LPF (</=FEW) Urine Bacteria Few /HPF (NONE-FEW) Urine Hyaline Casts Many /LPF (NONE-FEW) Urine Mucus Few /HPF (NONE-FEW) ED Course/Re-evaluation ED Course Pt presents after witnessed seizure by roomate; initially postictal, now demonstrating withdrawal symptoms; initially tachycardic, mild headache, nausea. ED eval demonstrates tongue biting, but no open lac, no other significant injuries. Pt improved with ativan and HD stable. Will admit for monitoring, r/o other etiologies of sz, repletion of electrolytes Decision to Disposition Date: May 01, 2018 Decision to Disposition Time: 17:54 Depart Departure Latest Vital Signs Vital Signs Date Time Temp Pulse Resp B/P (MAP) Pulse Ox O2 Delivery O2 Flow Rate FiO2 05/01/18 17:30 85 13 148/101 (117) 98 05/01/18 16:20 98.5 Room Air Impression: Primary Impression: Seizure Additional Impression: Alcohol withdrawal Condition: Improved Disposition: Admitted from ER New Scripts Unable to Obtain Active Prescriptions or Reported Meds Problem Qualifiers Additional Impression: Alcohol withdrawal Complication of substance-induced condition: with unspecified complication Qualified Codes: F10.239 - Alcohol dependence with withdrawal, unspecified BASIA BASSETT MD May 01, 2018 16:55
[2018-05-01 17:08] LABS: PLATELET COUNT, AUTOMATED 155 K/uL (150-450)
[2018-05-01] MEDS ORDERED: MULTIVITAMINS(*) 10 ML VIAL 10 ML, THIAMINE HCL(*) 200 MG/2 ML IN 100 MG, FOLIC ACID(*)... IV ONE (17:50)
--- NOTE | 2018-05-01 18:06 | RADIOLOGY IMAGING REPORT ---
FACILITY: [facility] PATIENT NAME: Ezekiel Unger : 1985 MR: [id number] V: [id number] EXAM DATE: ORDERING PHYSICIAN: BASIA BASSETT TECHNOLOGIST: Location: [facility] [place] Patient: Ezekiel Unger : 1985 Visit/Account:[id number] Date of Sevice: 05/01/2018 EXAMINATION: CT head without IV contrast HISTORY: Seizure. TECHNIQUE: Axial CT images of the head were obtained from the vertex to the skull base without IV c ontrast, with coronal and sagittal 2D reconstructed images. One of the following dose optimization techniques was utilized in the performance of this exam: Autom ated exposure control; adjustment of the mA and/or kV according to the patient's size; or use of an i terative reconstruction technique. Specific details can be referenced in the facility's radiology C T exam operational policy. COMPARISON: None. FINDINGS: The intracranial contents are unremarkable. No CT evidence of intracranial hemorrhage, mass lesion, or acute infarct. No midline shift or extra-axial fluid collections. Alberto-white differentiation is maintained. The calvarium is intact. The visualized paranasal sinuses and mastoid air cells are unopacified. IMPRESSION: Unremarkable noncontrast head CT. Report Dictated By: Santino Celis MD at 05/01/2018 5:54 PM Report E-Signed By: Santino Celis MD at 05/01/2018 6:02 PM WSN:[id number]
[2018-05-01] MEDS ORDERED: MORPHINE 4 MG/ML SDV IVP ONE (18:30)
[2018-05-01 20:30] VITALS: BP 163/113
[2018-05-01] MEDS ORDERED: LIDOCAINE 2% VISC SLN 15ML UDC PO ONE (20:50)
[2018-05-01] MEDS ORDERED: MAG HYD/AL HYD/SIMETH 30ML UDC PO ONE (20:50)
[2018-05-01] MEDS ORDERED: MAGIC MOUTHWASH 90 ML BTL PO ONE (21:00)
== END 2018-05-01 21:05 | disposition left against medical advice (07) ==
LOC: ER 16:25 → UNDOADMIN 18:55 → MED 18:55 → ER 21:05
DX: F10.239 Alcohol dependence with withdrawal, unspecified (principal); R11.0 Nausea; R53.81 Other malaise
CPT/HCPCS: 36415; 80305; 80320; 81001; 83735; 84100; 84443; 85025; 96365; 96375; 99284; J2060; J2270; J3411; J3475; J7030; 70450; 82040; 82247; 82310; 82374; 82435; 82565; 82947; 84075; 84132; 84155; 84295; 84450; 84460; 84520

== ENCOUNTER → 2018-05-01 | Outpatient (CLI) | payer SELFPAY ==
[~2018-05-01] MED LIST changes: +BP MED; +IBUP-136 PO; -IBUP200C71 PO
== END ==
LOC: AMB 15:47
PROVIDERS: ATTEND Nurse Practitioner
DX: R56.9 Unspecified convulsions (principal); R00.0 Tachycardia, unspecified; Z72.89 Other problems related to lifestyle
CPT/HCPCS: A0998

== ENCOUNTER 2018-07-06 15:38 | Emergency (ER) | payer SELFPAY ==
--- NOTE | 2018-07-06 15:45 | ER Report ---
History and Physical Time Seen By MD: 15:45 Allergies: Coded Allergies: ibuprofen (Verified Allergy, Intermediate, HIVES, 03/15/18) hydrocodone (Verified Adverse Reaction, Unknown, NAUSEA/VOMITING, 03/15/18) tramadol (Verified Adverse Reaction, Unknown, NAUSEA/VOMITING, 03/15/18) Home Meds No Active Prescriptions or Reported Meds Hx Smoking: Yes Smoking Status: Current: Every Day Smoker Exposure to Second Hand Smoke?: No Hx Substance Use Disorder: No (MARIJUANNA, AND ECSTASY IN THE PAST) Hx Alcohol Use: Yes (Q4D 40 OZ AND 2 SHOTS) Depart Departure Condition: Stable Disposition: HOME OR SELF-CARE New Scripts No Active Prescriptions or Reported Meds AVELINA BA DO Jul 06, 2018 15:45
--- NOTE | 2018-07-06 15:56 | ER Report ---
History and Physical Time Seen By MD: 15:56 HPI/ROS CHIEF COMPLAINT: Alcohol detox HISTORY OF PRESENT ILLNESS: 33-year-old male patient presents to emergency room with complaint of needing alcohol detox. Patient states he has a long-standing history of alcohol abuse and does drink a significant amount, totaling over a fifth of hard liquor a day. Patient states that he does often drink 2 40s of beer. Patient states that he has not tried alcohol detox previously. He states he would like to do that. Patient did present with a friend and that was their plan to detox together. Patient states that they were here in the emergency room last night, and were turned away because there is not any room. He states he did drink a 40 last night as well as had a shot upon arrival in the emergency room. Patient states he has noticed some shakiness. REVIEW OF SYSTEMS: Respiratory: No cough, no dyspnea. Cardiovascular: No chest pain, no palpitations. Gastrointestinal: No vomiting, no abdominal pain. Musculoskeletal: No back pain. Allergies: Coded Allergies: ibuprofen (Verified Allergy, Intermediate, HIVES, 07/06/18) hydrocodone (Verified Adverse Reaction, Unknown, NAUSEA/VOMITING, 07/06/18) tramadol (Verified Adverse Reaction, Unknown, NAUSEA/VOMITING, 07/06/18) Home Meds No Active Prescriptions or Reported Meds Reviewed Nurses Notes: Yes Hx Smoking: Yes Smoking Status: Current: Every Day Smoker Exposure to Second Hand Smoke?: No Hx Substance Use Disorder: No (MARIJUANNA, AND ECSTASY IN THE PAST) Hx Alcohol Use: Yes (Q4D 40 OZ AND 2 SHOTS) Constitutional Vital Sign - Last 24 Hours 07/06/18 07/06/18 07/06/18 07/06/18 15:53 15:58 16:08 16:23 Temp 99.0 Pulse 126 112 108 98 Resp 16 B/P (MAP) 194/118 (143) 194/118 Pulse Ox 93 95 95 95 O2 Delivery Room Air 07/06/18 07/06/18 07/06/18 07/06/18 16:38 16:53 17:08 17:23 Pulse 95 96 96 93 Pulse Ox 95 96 96 94 07/06/18 07/06/18 07/06/18 07/06/18 17:28 17:43 17:58 18:13 Pulse 89 96 99 91 B/P (MAP) 146/94 (111) Pulse Ox 96 94 94 93 Physical Exam General Appearance: The patient is alert, has no immediate need for airway protection and no current signs of toxicity. Respiratory: Chest is non tender, lungs are clear to auscultation. Cardiac: regular rate and rhythm Gastrointestinal: Abdomen is soft and non tender, no masses, bowel sounds normal. Musculoskeletal: Neck: Neck is supple and non tender. Extremities have full range of motion and are non tender. Skin: No rashes or lesions. DIFFERENTIAL DIAGNOSIS: After history and physical exam differential diagnosis w as considered for depression, anxiety, alcohol abuse. Medical Decision Making Data Points Result Diagram: 07/06/18 16507/[id number]/[id number] Laboratory Hematology Test 07/06/18 15:52 07/06/18 16:50 Urine Color Yellow Urine Clarity Clear Urine pH 6.0 pH (4.8-9.5) Urine Specific [place] 1.011 Urine Protein 30 mg/dL (NEGATIVE) Urine Glucose (UA) Negative mg/dL (NEGATIVE) Urine Ketones Negative mg/dL (NEGATIVE) Urine Blood Negative (NEGATIVE) Urine Nitrite Negative (NEGATIVE) Urine Bilirubin Negative (NEGATIVE) Urine Urobilinogen 4.0 mg/dL (0.2-1.9) Urine Leukocyte Esterase Negative (NEGATIVE) Urine RBC None /HPF (0-2/HPF) Urine WBC <1 /HPF (0-5/HPF) Urine Squamous Epithelial Cells None /LPF (</=FEW) Urine Bacteria Few /HPF (NONE-FEW) Urine Mucus Few /HPF (NONE-FEW) Urine Opiates Screen Negative Urine Barbiturates Screen Negative Ur Tricyclic Antidepressants Screen Negative Urine Phencyclidine Screen Negative Urine Amphetamines Screen Negative Urine Benzodiazepines Screen Negative Urine Cocaine Screen Negative Urine Cannabinoids Screen Negative Red Blood Count 5.61 M/uL (4.00-5.60) Mean Corpuscular Volume 90.8 fL (80.0-96.0) Mean Corpuscular Hemoglobin 31.2 pg (26.0-33.0) Mean Corpuscular Hemoglobin Concent 34.3 g/dL (32.0-36.0) Red Cell Distribution Width 13.4 % (11.5-14.5) Mean Platelet Volume 8.1 fL (7.2-11.1) Neutrophils (%) (Auto) 56.1 % (39.4-72.5) Lymphocytes (%) (Auto) 29.1 % (17.6-49.6) Monocytes (%) (Auto) 13.1 % (4.1-12.4) Eosinophils (%) (Auto) 0.8 % (0.4-6.7) Basophils (%) (Auto) 0.9 % (0.3-1.4) Nucleated RBC Relative Count (auto) 0.2 /100WBC Neutrophils # (Auto) 2.5 K/uL (2.0-7.4) Lymphocytes # (Auto) 1.3 K/uL (1.3-3.6) Monocytes # (Auto) 0.6 K/uL (0.3-1.0) Eosinophils # (Auto) 0.0 K/uL (0.0-0.5) Basophils # (Auto) 0.0 K/uL (0.0-0.1) Nucleated RBC Absolute Count (auto) 0.01 K/uL Peripheral Blood Smear Yes Y/N Sodium Level 140 mmol/L (137-145) Potassium Level 3.1 mmol/L (3.5-5.0) Chloride Level 101 mmol/L (98-107) Carbon Dioxide Level 23 mmol/L (22-30) Blood Urea Nitrogen 6 mg/dl (9-21) Creatinine 0.70 mg/dl (0.66-1.25) Glomerular Filtration Rate Calc > 60.0 Random Glucose 107 mg/dl (75-110) Calcium Level 9.3 mg/dl (8.4-10.2) Magnesium Level 1.6 mg/dl (1.7-2.2) Total Bilirubin 1.0 mg/dl (0.2-1.3) Aspartate Amino Transf (AST/SGOT) 133 U/L (0-35) Alanine Aminotransferase (ALT/SGPT) 88 U/L (0-56) Alkaline Phosphatase 94 U/L (0-126) Total Protein 8.0 g/dl (6.3-8.2) Albumin 4.6 g/dl (3.5-5.0) Salicylates Level < 10 mg/L Salicylate Last Dose Date unk Acetaminophen Level < 10 ug/ml Serum Alcohol 172 mg/dl Chemistry Test 07/06/18 15:52 07/06/18 16:50 Urine Color Yellow Urine Clarity Clear Urine pH 6.0 pH (4.8-9.5) Urine Specific [place] 1.011 Urine Protein 30 mg/dL (NEGATIVE) Urine Glucose (UA) Negative mg/dL (NEGATIVE) Urine Ketones Negative mg/dL (NEGATIVE) Urine Blood Negative (NEGATIVE) Urine Nitrite Negative (NEGATIVE) Urine Bilirubin Negative (NEGATIVE) Urine Urobilinogen 4.0 mg/dL (0.2-1.9) Urine Leukocyte Esterase Negative (NEGATIVE) Urine RBC None /HPF (0-2/HPF) Urine WBC <1 /HPF (0-5/HPF) Urine Squamous Epithelial Cells None /LPF (</=FEW) Urine Bacteria Few /HPF (NONE-FEW) Urine Mucus Few /HPF (NONE-FEW) Urine Opiates Screen Negative Urine Barbiturates Screen Negative Ur Tricyclic Antidepressants Screen Negative Urine Phencyclidine Screen Negative Urine Amphetamines Screen Negative Urine Benzodiazepines Screen Negative Urine Cocaine Screen Negative Urine Cannabinoids Screen Negative White Blood Count 4.5 k/uL (4.5-11.0) Red Blood Count 5.61 M/uL (4.00-5.60) Hemoglobin 17.5 g/dL (14.0-18.0) Hematocrit 50.9 % (42.0-52.0) Mean Corpuscular Volume 90.8 fL (80.0-96.0) Mean Corpuscular Hemoglobin 31.2 pg (26.0-33.0) Mean Corpuscular Hemoglobin Concent 34.3 g/dL (32.0-36.0) Red Cell Distribution Width 13.4 % (11.5-14.5) Platelet Count 186 K/uL (150-450) Mean Platelet Volume 8.1 fL (7.2-11.1) Neutrophils (%) (Auto) 56.1 % (39.4-72.5) Lymphocytes (%) (Auto) 29.1 % (17.6-49.6) Monocytes (%) (Auto) 13.1 % (4.1-12.4) Eosinophils (%) (Auto) 0.8 % (0.4-6.7) Basophils (%) (Auto) 0.9 % (0.3-1.4) Nucleated RBC Relative Count (auto) 0.2 /100WBC Neutrophils # (Auto) 2.5 K/uL (2.0-7.4) Lymphocytes # (Auto) 1.3 K/uL (1.3-3.6) Monocytes # (Auto) 0.6 K/uL (0.3-1.0) Eosinophils # (Auto) 0.0 K/uL (0.0-0.5) Basophils # (Auto) 0.0 K/uL (0.0-0.1) Nucleated RBC Absolute Count (auto) 0.01 K/uL Peripheral Blood Smear Yes Y/N Glomerular Filtration Rate Calc > 60.0 Calcium Level 9.3 mg/dl (8.4-10.2) Magnesium Level 1.6 mg/dl (1.7-2.2) Total Bilirubin 1.0 mg/dl (0.2-1.3) Aspartate Amino Transf (AST/SGOT) 133 U/L (0-35) Alanine Aminotransferase (ALT/SGPT) 88 U/L (0-56) Alkaline Phosphatase 94 U/L (0-126) Total Protein 8.0 g/dl (6.3-8.2) Albumin 4.6 g/dl (3.5-5.0) Salicylates Level < 10 mg/L Salicylate Last Dose Date unk Acetaminophen Level < 10 ug/ml Serum Alcohol 172 mg/dl Toxicology Test 07/06/18 15:52 07/06/18 16:50 Urine Opiates Screen Negative Urine Barbiturates Screen Negative Ur Tricyclic Antidepressants Screen Negative Urine Phencyclidine Screen Negative Urine Amphetamines Screen Negative Urine Benzodiazepines Screen Negative Urine Cocaine Screen Negative Urine Cannabinoids Screen Negative Salicylates Level < 10 mg/L Salicylate Last Dose Date unk Acetaminophen Level < 10 ug/ml Serum Alcohol 172 mg/dl Urinalysis Test 07/06/18 15:52 Urine Color Yellow Urine Clarity Clear Urine pH 6.0 pH (4.8-9.5) Urine Specific [place] 1.011 Urine Protein 30 mg/dL (NEGATIVE) Urine Glucose (UA) Negative mg/dL (NEGATIVE) Urine Ketones Negative mg/dL (NEGATIVE) Urine Blood Negative (NEGATIVE) Urine Nitrite Negative (NEGATIVE) Urine Bilirubin Negative (NEGATIVE) Urine Urobilinogen 4.0 mg/dL (0.2-1.9) Urine Leukocyte Esterase Negative (NEGATIVE) Urine RBC None /HPF (0-2/HPF) Urine WBC <1 /HPF (0-5/HPF) Urine Squamous Epithelial Cells None /LPF (</=FEW) Urine Bacteria Few /HPF (NONE-FEW) Urine Mucus Few /HPF (NONE-FEW) ED Course/Re-evaluation ED Course Patient is admitted to exam room, history and physical were obtained. Differential diagnoses were considered. On examination lungs are clear, heart is regular, abdomen soft nontender. The lab work for a behavioral [facility] admission were done. Lab results were unremarkable. Patient did sign in voluntarily. I discussed the case with Dr. Clayton, psychiatrist, who agreed to accept the patient for admission. Patient will be admitted to [facility] for alcohol detox. Decision to Disposition Date: Jul 06, 2018 Decision to Disposition Time: 17:42 Depart Departure Latest Vital Signs Vital Signs Date Time Temp Pulse Resp B/P (MAP) Pulse Ox O2 Delivery O2 Flow Rate FiO2 07/06/18 18:13 91 146/94 (111) 93 07/06/18 15:58 99.0 16 Room Air Impression: Primary Impression: Alcohol withdrawal Condition: Improved Disposition: XFER TO [facility] New Scripts No Active Prescriptions or Reported Meds Problem Qualifiers Primary Impression: Alcohol withdrawal Complication of substance-induced condition: uncomplicated Qualified Codes: F10.230 - Alcohol dependence with withdrawal, uncomplicated RAVEN SANABRIA Jul 06, 2018 15:56
[2018-07-06] MEDS ORDERED: DIAZEPAM 10 MG TAB PO ONE (16:20)
[2018-07-06 16:59] LABS: PLATELET COUNT, AUTOMATED 186 K/uL (150-450)
[2018-07-06 18:13] VITALS: BP 146/94
== END 2018-07-06 19:04 ==
LOC: ER 15:53
DX: F10.230 Alcohol dependence with withdrawal, uncomplicated (principal)
CPT/HCPCS: 36415; 80305; 80320; 80329; 81001; 82040; 82247; 82310; 82374; 82435; 82565; 82947; 83735; 84075; 84132; 84155; 84295; 84443; 84450; 84460; 84520; 85025; 99284

== ENCOUNTER 2018-07-06 18:06 | Inpatient (IN) | payer SELFPAY ==
[~2018-07-06] VITALS: Ht 190.5 cm; Wt 83.9 kg
[2018-07-06] MEDS ORDERED: MAG HYD/AL HYD/SIMETH 30ML UDC PO PRN (18:15)
[2018-07-06 19:01] VITALS: BP 140/100
[2018-07-06] MEDS: DIAZEPAM 10 MG TAB PO PRN (21:24)
[2018-07-06] MEDS ORDERED: INFLUENZA VIRUS VAC 0.5ML SYR IM ONLY ONE (22:15)
[2018-07-06] MEDS ORDERED: NICOTINE CARTRIDGE 1 EA PO PRN (22:15)
[2018-07-06 22:38] VITALS: BP 158/90
[2018-07-07 03:24] VITALS: BP 137/95
[2018-07-07 07:40] VITALS: BP 146/98
[2018-07-07] MEDS: THIAMINE HCL 100 MG TAB PO SCH (08:16)
[2018-07-07] MEDS: MULTIVITAMINS TAB PO SCH (08:16)
[2018-07-07] MEDS: FOLIC ACID 1 MG TAB PO SCH (08:16)
[2018-07-07 11:15] VITALS: BP 166/100
[2018-07-07] MEDS: DIAZEPAM 10 MG TAB PO PRN ×2 (11:20→22:05)
[2018-07-07] MEDS ORDERED: INFLUENZA VIRUS VAC 0.5ML SYR IM ONLY ONE (12:30)
--- NOTE | 2018-07-07 14:28 | SCHAAF H&P ---
DATE OF ADMISSION: July 06, 2018 ATTENDING PHYSICIAN Ash Clayton MD Patient was seen at approximately 1100 hours on July 07, 2018 for a note concerning this dictation. PRESENTING PROBLEM, CHIEF COMPLAINT Patient presenting for alcohol withdrawal. HISTORY OF PRESENT ILLNESS This is a very pleasant 33-year-old male who states he wants to quit drinking alcohol as well as nicotine consumption now, and he is coming to the hospital because he "can't do it himself." Patient reports he is deciding to quit alcohol use now to help his own life, and that he wants to set an example for his 2-year-old daughter. Patient reports specific stressors in his life, that he cannot see his daughter until he gets free of alcohol use. Patient reporting that this is not any kind of legal requirement, but more something he is holding himself to. Other than that, patient denies any symptoms of psychiatric concern. Patient does have some ongoing negative memories of having his mother pass away from lupus at an early age approximately four years ago, but this does not seem to meet criteria for PTSD, and patient denies any other psychiatric symptoms of concern other than frustration with current ongoing alcohol use. MENTAL HEALTH HISTORY The patient has never been an inpatient in a psychiatric [facility] before. Patient reports some outpatient treatment related to alcohol use in the past, but none now, and patient has never been in residential treatment facility for alcohol use disorder. Patient has attended AA in the past. Patient has no suicide attempt history. MEDICATIONS The patient is not currently on any medications now. FAMILY PSYCHIATRIC HISTORY One of the patient's half-brothers may have been involved with alcohol and drug use. Mother was involved with alcohol and drug use during her life as well. No other psychiatric history in genetic relatives is known. PAST MEDICAL HISTORY The patient has been diagnosed with hypertension in the past and been on medications for it. This is likely related in part to nicotine and alcohol consumption. ALLERGIES HYDROCODONE, IBUPROFEN, AND TRAMADOL. SOCIAL HISTORY The patient was born in [place] and raised in [place]. It is unknown if his parents were together at the time of his . Patient lived with his mother until being placed in a foster home. He states she was unable to care for multitude of children. Patient reports having four half-brothers and two half-sisters. Patient did graduate from high school. He attempted some college in the past. Patient has no significant other now. He considers himself heterosexual. Does have a 2-year-old daughter believed to be living with the child's mother. 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 LEGAL HISTORY Patient reports DUI four years ago. No other legal history is known. SUBSTANCE ABUSE HISTORY Patient drinking alcohol on a daily basis for many years and is a 2-1/2 pack a day smoker. PHYSICAL EXAMINATION Please see emergency room note notable for cooperative 33-year-old male, in no acute medical distress. Vital signs at the time of admission: Temperature 99.0, pulse 112, respiratory rate 16, blood pressure 194/118 and pulse oximetry 95% on room air. LABORATORY DATA TSH 1.52, within normal limits. CBC notable for RBC slightly elevated at 5.6. Chemistry panel notable for magnesium 1.6 and low, potassium 3.1 and low, AST 133 and elevated, ALT 88 and elevated. Urinalysis notable for urine urobilinogen and protein present. Toxicology screen negative for substances of abuse with a serum alcohol level of 172 upon admission. MENTAL STATUS EXAMINATION GENERAL APPEARANCE, BEHAVIOR AND ATTITUDE: This is a pleasant, cooperative 33-year-old male interacting well with this provider and other treatment team staff. Patient making good eye contact. No bizarre mannerisms are detected. No periods of tearfulness. Minimal psychomotor agitation noted. Patient currently being treated for alcohol withdrawal. SPEECH: Within normal limits. Regular rate, rhythm, volume and tone. MOOD: Described as frustrated over alcohol use. AFFECT: Minimally constricted at times and mood-congruent. THOUGHT PROCESSES: Goal-directed and logical. Patient verbalizing the desire to abstain from nicotine and alcohol upon department from the hospital. No loose associations or flight of ideas. THOUGHT CONTENT: Free of auditory or visual hallucinations, ideas of reference, thought broadcastings, delusions, obsessions, compulsions. The patient adamantly denying suicidal or homicidal ideations. SENSORIUM: Clear. COGNITION: Alert and oriented to person, place, time and situation. MEMORY: Immediate, recent and remote estimated intact. INTELLIGENCE: Average, based on interview. INSIGHT AND JUDGMENT: Considered grossly intact in the absence of alcohol use. ASSESSMENT This is a very pleasant 33-year-old male, presents voluntarily for help of alcohol withdrawal. We will treat alcohol withdrawal to completion with diazepam per [facility] protocol, and we will continue to evaluate any other symptoms of concern. DIAGNOSES 1. Alcohol intoxication. 2. Alcohol withdrawal. 3. Alcohol use disorder, severe. PLAN 1. Admit to the unit. 2. Necessary precautions will be implemented. 3. The patient will participate in individual and group therapy. 4. Medications to be titrated accordingly, including diazepam per [facility] protocol. 5. Collateral information to be obtained as necessary. 6. Estimated length of stay of three days. MTDD
[2018-07-07 15:10] VITALS: BP 150/106
[2018-07-07 17:30] VITALS: BP 167/113
[2018-07-07] MEDS ORDERED: LOPERAMIDE HCL 2 MG CAP PO PRN (18:25)
[2018-07-07] MEDS ORDERED: LOPERAMIDE HCL 2 MG CAP PO ONE (18:25)
[2018-07-07] MEDS: NICOTINE INH SYSTEM 10 MG/INH INH PRN (19:20)
[2018-07-07 23:28] VITALS: BP 167/113
[2018-07-08 06:10] VITALS: BP 111/92
[2018-07-08] MEDS: THIAMINE HCL 100 MG TAB PO SCH (08:33)
[2018-07-08] MEDS: FOLIC ACID 1 MG TAB PO SCH (08:33)
[2018-07-08] MEDS: MULTIVITAMINS TAB PO SCH (08:33)
[2018-07-08 09:52] VITALS: BP 147/86
[2018-07-08 12:30] VITALS: BP 140/80
--- NOTE | 2018-07-08 13:39 | BHS Progress Note ---
[facility] - Subjective Progress Notes Subjective Met with Ezekiel this afternoon at 1315. He is progressing well with his detox protocol and feeling hopeful. He has made plans to "turn my life around" and intends to find a sober living situation, eliminate friends who drink, "be there for my daughter." Specifically, he intends to start going to AA as soon as he is released from the hospital. Suicidal Ideation: None Homicidal Ideation: None [facility] - Objective Physical Exam Gait and Station: Steady Allergies Reviewed: Yes Mental Status Exam General Appearance: Well Groomed, Good Eye Contact, Cooperative, Polite, Good Interaction Speech: Clear, Spontaneous, Normal Rate, Normal Rhythm, Normal Volume, Normal Tone Mood: Euthymic Affect: Full and Appropriate, Calm Thought Process: Organized, Logical, Goal Directed Thought Content: No Suicidal Ideation, No Homicidal Ideation, No Delusions, No Auditory Halllucinations, No Visual Hallucinations, No Thought Broadcasting, No Ideas of Reference, No Obsessions, No Compulsions, No Other Sensorium: Clear Memory: Immediate, Recent, Remote, Other Intelligence: Average Insight Judgment: Good Result Diagram: 07/07/18 1515 [facility] Assessment and Plan [id number] Encounter Date: Jul 08, 2018 [id number] Encounter Time: 13:15 Multpiple Antipsychotics Used: No Problems: (1) Alcohol withdrawal Status: Acute (2) Alcohol abuse Status: Acute (3) Alcohol intoxication Status: Resolved Condition Brayden is progressing well and hope to release his tomorrow when he completes detox. ENRIQUE ARNETT DO Jul 08, 2018 13:39
[2018-07-08] MEDS: NICOTINE INH SYSTEM 10 MG/INH INH PRN ×2 (13:47→20:03)
[2018-07-08 14:00] VITALS: BP 154/98
[2018-07-08 20:47] VITALS: BP 151/109
[2018-07-08] MEDS ORDERED: TEMAZEPAM 15 MG CAP PO ONE (21:00)
[2018-07-09 06:25] VITALS: BP 144/87
[2018-07-09] MEDS: FOLIC ACID 1 MG TAB PO SCH (08:12)
[2018-07-09] MEDS: THIAMINE HCL 100 MG TAB PO SCH (08:12)
[2018-07-09] MEDS: MULTIVITAMINS TAB PO SCH (08:12)
[2018-07-09] MEDS ORDERED: HYDR50CA48 PO (09:08)
[2018-07-09] MEDS ORDERED: NIC10R INH (09:08)
[2018-07-09 09:44] VITALS: BP 163/100
--- NOTE | 2018-07-11 07:24 | DISCHARGE SUMMARY ---
DATE OF ADMISSION: July 06, 2018 DATE OF DISCHARGE: July 09, 2018 ATTENDING PHYSICIAN Pricilla Lopez, TIME AND DATE SEEN July 09, 2018 at 09:00 hours. FINAL DIAGNOSIS 1. Alcohol intoxication. 2. Alcohol withdrawal. 3. Alcohol use disorder. REASON FOR ADMISSION Mr. Unger presented to the emergency room stating he wanted to quit drinking alcohol. He came to the hospital because he was unable to stop drinking on his own and needed help with detox. PHYSICAL EXAMINATION Physical examination done in the emergency room found a generally healthy 33-year-old male in no medical distress. VITAL SIGNS: At the time of admission were a Temp 99, Pulse 112, Respirations 18, Blood Pressure elevated at 194/118. LABORATORY DATA Included a TSH of 1.52, CBC notable for slightly elevated RBC count at 5.6. Chemistry panel notable for a magnesium 1.6 and low potassium 3.1. AST 133 and elevated and ALT also elevated at 88 consistent with his history of alcohol consumption. Urobilinogen and Protein were present in the urine. Toxicology was negative for substances of abuse and a serum alcohol level was 172 upon admission. MENTAL STATUS EXAMINATION AT THE TIME OF DISCHARGE GENERAL APPEARANCE, BEHAVIOR AND ATTITUDE: I met with the patient on the morning of discharge at about 9:00 a.m. At this time, he presents as a well developed, well nourished, black male who is in good spirits and anxious to be released to continue outpatient treatment. SPEECH: Coherent and logical. MOOD AND AFFECT: Positive with no signs of depression or marcela. THOUGHT PROCESSES: Are entirely coherent and logical. He denies any hallucinations or other psychotic thought processes, thoughts about suicide or violence towards others. COGNITION: Is alert, oriented in all spheres. SENSORIUM: Clear. MEMORY: For immediate, recent, and intermediate events is also intact. INTELLIGENCE: Is judged to be at least average. INSIGHT AND JUDGMENT: Good with an understanding of the importance of continues sobriety and the challenges that presents for him. TREATMENT Mr. Unger was admitted and treated for alcohol withdrawal according to the [facility] protocol. We also added Temazepam for sleep. He responded nicely to individual and group therapy as well as detox protocol. HOSPITAL COURSE In addition to detox, Mr. Unger met with representatives from and concrete plans were made for him to begin attending AA meetings and to get a sponsor. He also began completing assignments that they gave him in the [employer]. CONDITION ON DISCHARGE Stable and improved. Mr. Unger considered a minimal risk to himself or others. DISPOSITION Mr. Unger will be released and follow up with the local AA community. He has information about meetings and intends to get a sponsor. I gave Mr. Unger a prescription for Hydroxyzine 50 mg, #30, which he can take on an as needed basis for sleep following discharge. MTDD
== END 2018-07-09 09:55 | disposition home or self-care (01) | DRG 897 ==
LOC: BHS 18:06
PROVIDERS: ADMIT Psychiatry & Neurology Psychiatry; ATTEND Psychiatry & Neurology Psychiatry
DX: F10.230 Alcohol dependence with withdrawal, uncomplicated (principal); I10 Essential (primary) hypertension; F17.210 Nicotine dependence, cigarettes, uncomplicated; Y90.8 Blood alcohol level of 240 mg/100 ml or more; Z88.5 Allergy status to narcotic agent; Z88.8 Allergy status to other drugs, medicaments and biological substances; Z73.3 Stress, not elsewhere classified; Z23 Encounter for immunization
CPT/HCPCS: 36415; 82040; 82247; 82310; 82374; 82435; 82565; 82947; 83735; 84075; 84132; 84155; 84295; 84450; 84460; 84520; 90471; 90674

== ENCOUNTER 2018-08-17 21:08 | Emergency (ER) | payer OTHER ==
[~2018-08-17 21:08] MED LIST changes: +HYDR50CA48 PO; +NIC10R INH
--- NOTE | 2018-08-17 21:16 | ER Report ---
History and Physical Time Seen By MD: 21:17 HPI/ROS CHIEF COMPLAINT: Emergency residential for suicidal statements HISTORY OF PRESENT ILLNESS: This is a 33-year-old male. He is here with the transaction coordinator's office, brought in under emergency residential for suicidal statements made earlier. He states that he has been stressed out and was just blowing off steam when he told a female friend that he wanted to off himself. They, hence about driving down the road standing up in the open roof and causing an accident and/or running head-on into another vehicle. The female friend called behavioral health who then phoned law enforcement who then made contact with a female friend. They then made contact with the patient when he arrived at the female friend's home. Patient states that he is not currently suicidal. He has been drinking tonight. He has been here in the ER and admitted to behavioral health in the past for alcohol detox. Denies any other drug use. He has a little bit upset situation because he feels his words were taken out of context when he was just blowing off steam. REVIEW OF SYSTEMS: Respiratory: No cough, no dyspnea. Cardiovascular: No chest pain, no palpitations. Gastrointestinal: No vomiting, no abdominal pain. Musculoskeletal: No musculoskeletal pain. Allergies: Coded Allergies: ibuprofen (Verified Allergy, Intermediate, HIVES, 07/06/18) hydrocodone (Verified Adverse Reaction, Unknown, NAUSEA/VOMITING, 07/06/18) tramadol (Verified Adverse Reaction, Unknown, NAUSEA/VOMITING, 07/06/18) Home Meds Discontinued Reported Medications Nicotine (NICOTROL) 10 Mg/Inh Ctr, 10 MG INH PRN PRN for NICOTINE REPLACEMENT 07/09/18 Hydroxyzine Pamoate (HYDROXYZINE PAMOATE) 50 Mg Capsule, 50 MG PO QHS PRN for SLEEP, CAPSULE 07/09/18 Reviewed Nurses Notes: Yes Hx Smoking: Yes Smoking Status: Current: Every Day Smoker, Heavy Tobacco Smoker Exposure to Second Hand Smoke?: No Hx Substance Use Disorder: No (MARIJUANNA, AND ECSTASY IN THE PAST) Hx Alcohol Use: Yes Constitutional Vital Sign - Last 24 Hours 08/17/18 08/17/18 08/17/18 08/17/18 21:19 21:23 21:30 21:38 Temp 98.7 Pulse 79 71 Resp 17 B/P (MAP) 176/121 (139) 176/121 167/123 (138) Pulse Ox 95 94 O2 Delivery Room Air 08/17/18 08/17/18 08/17/18 08/17/18 21:43 21:45 22:00 22:13 Pulse 77 67 B/P (MAP) 168/134 (145) 161/121 (134) Pulse Ox 96 97 08/17/18 22:15 B/P (MAP) 162/111 (128) Physical Exam General Appearance: The patient is alert, has no immediate need for airway protection and no current signs of toxicity. Eyes: Pupils equal and round no injection. ENT: Normal oral mucosa. Moist mucous membranes. Neck: Neck is supple and non tender. Respiratory: Chest is non tender, lungs are clear to auscultation. Cardiac: regular rate and rhythm Gastrointestinal: Abdomen is soft and non tender, no masses, bowel sounds normal. Musculoskeletal: Extremities have full range of motion. Skin: No rashes or lesions. DIFFERENTIAL DIAGNOSIS: After history and physical exam differential diagnosis was considered for emergency residential for suicidal ideation Medical Decision Making Data Points Result Diagram: [id number]/17/[id number] Laboratory Hematology Test 08/17/18 21:17 08/17/18 21:35 Urine Color Yellow Urine Clarity Clear Urine pH 6.0 pH (4.8-9.5) Urine Specific [place] 1.012 Urine Protein 30 mg/dL (NEGATIVE) Urine Glucose (UA) Negative mg/dL (NEGATIVE) Urine Ketones Negative mg/dL (NEGATIVE) Urine Blood Small (NEGATIVE) Urine Nitrite Negative (NEGATIVE) Urine Bilirubin Negative (NEGATIVE) Urine Urobilinogen Negative mg/dL (0.2-1.9) Urine Leukocyte Esterase Negative (NEGATIVE) Urine RBC 1 /HPF (0-2/HPF) Urine WBC 1 /HPF (0-5/HPF) Urine Squamous Epithelial Cells None /LPF (</=FEW) Urine Bacteria Negative /HPF (NONE-FEW) Urine Mucus Few /HPF (NONE-FEW) Urine Opiates Screen Negative Urine Barbiturates Screen Negative Ur Tricyclic Antidepressants Screen Negative Urine Phencyclidine Screen Negative Urine Amphetamines Screen Negative Urine Benzodiazepines Screen Negative Urine Cocaine Screen Negative Urine Cannabinoids Screen Negative Red Blood Count 5.87 M/uL (4.00-5.60) Mean Corpuscular Volume 89.6 fL (80.0-96.0) Mean Corpuscular Hemoglobin 30.8 pg (26.0-33.0) Mean Corpuscular Hemoglobin Concent 34.4 g/dL (32.0-36.0) Red Cell Distribution Width 13.8 % (11.5-14.5) Mean Platelet Volume 7.6 fL (7.2-11.1) Neutrophils (%) (Auto) 46.2 % (39.4-72.5) Lymphocytes (%) (Auto) 39.2 % (17.6-49.6) Monocytes (%) (Auto) 11.8 % (4.1-12.4) Eosinophils (%) (Auto) 1.4 % (0.4-6.7) Basophils (%) (Auto) 1.4 % (0.3-1.4) Nucleated RBC Relative Count (auto) 0.1 /100WBC Neutrophils # (Auto) 3.5 K/uL (2.0-7.4) Lymphocytes # (Auto) 3.0 K/uL (1.3-3.6) Monocytes # (Auto) 0.9 K/uL (0.3-1.0) Eosinophils # (Auto) 0.1 K/uL (0.0-0.5) Basophils # (Auto) 0.1 K/uL (0.0-0.1) Nucleated RBC Absolute Count (auto) 0.00 K/uL Sodium Level 143 mmol/L (137-145) Potassium Level 3.7 mmol/L (3.5-5.0) Chloride Level 105 mmol/L (98-107) Carbon Dioxide Level 29 mmol/L (22-30) Blood Urea Nitrogen 9 mg/dl (9-21) Creatinine 0.80 mg/dl (0.66-1.25) Glomerular Filtration Rate Calc > 60.0 Random Glucose 97 mg/dl (75-110) Calcium Level 8.8 mg/dl (8.4-10.2) Magnesium Level 1.8 mg/dl (1.7-2.2) Total Bilirubin 0.3 mg/dl (0.2-1.3) Aspartate Amino Transf (AST/SGOT) 123 U/L (0-35) Alanine Aminotransferase (ALT/SGPT) 49 U/L (0-56) Alkaline Phosphatase 83 U/L (0-126) Total Protein 8.0 g/dl (6.3-8.2) Albumin 4.2 g/dl (3.5-5.0) Salicylates Level < 10 mg/L Salicylate Last Dose Date unk Acetaminophen Level < 10 ug/ml Serum Alcohol 282 mg/dl Chemistry Test 08/17/18 21:17 08/17/18 21:35 Urine Color Yellow Urine Clarity Clear Urine pH 6.0 pH (4.8-9.5) Urine Specific [place] 1.012 Urine Protein 30 mg/dL (NEGATIVE) Urine Glucose (UA) Negative mg/dL (NEGATIVE) Urine Ketones Negative mg/dL (NEGATIVE) Urine Blood Small (NEGATIVE) Urine Nitrite Negative (NEGATIVE) Urine Bilirubin Negative (NEGATIVE) Urine Urobilinogen Negative mg/dL (0.2-1.9) Urine Leukocyte Esterase Negative (NEGATIVE) Urine RBC 1 /HPF (0-2/HPF) Urine WBC 1 /HPF (0-5/HPF) Urine Squamous Epithelial Cells None /LPF (</=FEW) Urine Bacteria Negative /HPF (NONE-FEW) Urine Mucus Few /HPF (NONE-FEW) Urine Opiates Screen Negative Urine Barbiturates Screen Negative Ur Tricyclic Antidepressants Screen Negative Urine Phencyclidine Screen Negative Urine Amphetamines Screen Negative Urine Benzodiazepines Screen Negative Urine Cocaine Screen Negative Urine Cannabinoids Screen Negative White Blood Count 7.5 k/uL (4.5-11.0) Red Blood Count 5.87 M/uL (4.00-5.60) Hemoglobin 18.1 g/dL (14.0-18.0) Hematocrit 52.6 % (42.0-52.0) Mean Corpuscular Volume 89.6 fL (80.0-96.0) Mean Corpuscular Hemoglobin 30.8 pg (26.0-33.0) Mean Corpuscular Hemoglobin Concent 34.4 g/dL (32.0-36.0) Red Cell Distribution Width 13.8 % (11.5-14.5) Platelet Count 231 K/uL (150-450) Mean Platelet Volume 7.6 fL (7.2-11.1) Neutrophils (%) (Auto) 46.2 % (39.4-72.5) Lymphocytes (%) (Auto) 39.2 % (17.6-49.6) Monocytes (%) (Auto) 11.8 % (4.1-12.4) Eosinophils (%) (Auto) 1.4 % (0.4-6.7) Basophils (%) (Auto) 1.4 % (0.3-1.4) Nucleated RBC Relative Count (auto) 0.1 /100WBC Neutrophils # (Auto) 3.5 K/uL (2.0-7.4) Lymphocytes # (Auto) 3.0 K/uL (1.3-3.6) Monocytes # (Auto) 0.9 K/uL (0.3-1.0) Eosinophils # (Auto) 0.1 K/uL (0.0-0.5) Basophils # (Auto) 0.1 K/uL (0.0-0.1) Nucleated RBC Absolute Count (auto) 0.00 K/uL Glomerular Filtration Rate Calc > 60.0 Calcium Level 8.8 mg/dl (8.4-10.2) Magnesium Level 1.8 mg/dl (1.7-2.2) Total Bilirubin 0.3 mg/dl (0.2-1.3) Aspartate Amino Transf (AST/SGOT) 123 U/L (0-35) Alanine Aminotransferase (ALT/SGPT) 49 U/L (0-56) Alkaline Phosphatase 83 U/L (0-126) Total Protein 8.0 g/dl (6.3-8.2) Albumin 4.2 g/dl (3.5-5.0) Salicylates Level < 10 mg/L Salicylate Last Dose Date unk Acetaminophen Level < 10 ug/ml Serum Alcohol 282 mg/dl Toxicology Test 08/17/18 21:17 08/17/18 21:35 Urine Opiates Screen Negative Urine Barbiturates Screen Negative Ur Tricyclic Antidepressants Screen Negative Urine Phencyclidine Screen Negative Urine Amphetamines Screen Negative Urine Benzodiazepines Screen Negative Urine Cocaine Screen Negative Urine Cannabinoids Screen Negative Salicylates Level < 10 mg/L Salicylate Last Dose Date unk Acetaminophen Level < 10 ug/ml Serum Alcohol 282 mg/dl Urinalysis Test 08/17/18 21:17 Urine Color Yellow Urine Clarity Clear Urine pH 6.0 pH (4.8-9.5) Urine Specific [place] 1.012 Urine Protein 30 mg/dL (NEGATIVE) Urine Glucose (UA) Negative mg/dL (NEGATIVE) Urine Ketones Negative mg/dL (NEGATIVE) Urine Blood Small (NEGATIVE) Urine Nitrite Negative (NEGATIVE) Urine Bilirubin Negative (NEGATIVE) Urine Urobilinogen Negative mg/dL (0.2-1.9) Urine Leukocyte Esterase Negative (NEGATIVE) Urine RBC 1 /HPF (0-2/HPF) Urine WBC 1 /HPF (0-5/HPF) Urine Squamous Epithelial Cells None /LPF (</=FEW) Urine Bacteria Negative /HPF (NONE-FEW) Urine Mucus Few /HPF (NONE-FEW) ED Course/Re-evaluation ED Course Labs with the elevated alcohol and the positive cannabinoids but otherwise nega tive. Discussed with Dr. Clayton who admitted the patient to behavioral health Decision to Disposition Date: Aug 17, 2018 Decision to Disposition Time: 22:14 Depart Departure Latest Vital Signs Vital Signs Date Time Temp Pulse Resp B/P (MAP) Pulse Ox O2 Delivery O2 Flow Rate FiO2 08/17/18 22:15 162/111 (128) 08/17/18 22:13 67 97 08/17/18 21:23 98.7 17 Room Air Impression: Primary Impression: Suicidal ideation Additional Impression: Alcohol intoxication Condition: Condition Unchanged Disposition: XFER TO [facility] New Scripts No Active Prescriptions or Reported Meds Problem Qualifiers Additional Impression: Alcohol intoxication Complication of substance-induced condition: uncomplicated Qualified Codes: F10.920 - Alcohol use, unspecified with intoxication, uncomplicated JUAN M LANDEROS MD Aug 17, 2018 21:16
--- NOTE | 2018-08-17 21:31 | BHS - Psychiatric Evaluation ---
ER - Title 25 MHE Evaluation Title 25 Evaluation Patient Detained By: Law Enforcement Referral Source: maryann Powell, patient Date Patient Detained: Aug 17, 2018 Time Patient Detained: 20:54 Date Usp Expires: Aug 22, 2018 Time Usp Expires: 20:54 Legal Status: Police Hold: No Legal Status: Residence: [facility] Resident Assessment Data Provided By: Patient, Law Enforcement HPI/ROS: CHIEF COMPLAINT: Emergency care home for suicidal statements HISTORY OF PRESENT ILLNESS: This is a 33-year-old male. He is here with the supercharger mechanic's office, brought in under emergency care home for suicidal statements made earlier. He states that he has been stressed out and was just blowing off steam when he told a female friend that he wanted to off himself. They, hence about driving down the road standing up in the open roof and causing an accident and/or running head-on into another vehicle. The female friend called behavioral health who then phoned law enforcement who then made contact with a female friend. They then made contact with the patient when he arrived at the female friend's home. Patient states that he is not currently suicidal. He has been drinking tonight. He has been here in the ER and admitted to behavioral health in the past for alcohol detox. Denies any other drug use. He has a little bit upset situation because he feels his words were taken out of context when he was just blowing off steam. REVIEW OF SYSTEMS: Respiratory: No cough, no dyspnea. Cardiovascular: No chest pain, no palpitations. Gastrointestinal: No vomiting, no abdominal pain. Musculoskeletal: No musculoskeletal pain. Admit due to SI or Attempt: Yes Suicide Plan: No Plan Alcohol or Drugs Involved: Yes Is Patient Info Reliable: Yes Is Collateral Info Reliable: Yes Mental Status Exam General Appearance: Good Eye Contact, Cooperative, Polite, Tearful Speech: Clear, Spontaneous, Normal Rate, Normal Rhythm, Normal Volume, Normal Tone Mood: Dysthmic/Depressed Affect: Calm, Sad Thought Process: Organized, Logical Thought Content: No Suicidal Ideation, No Homicidal Ideation Sensorium: Clear Cognition: Alert & Oriented-Person, Alert & Oriented-Place, Alert & Oriented- Time, [id number] Insight Judgment: Fair Current Risk & History Current Dangerous Risk Assessm: Current Suicide Ideation Past Dangerous Risk Assessm: Suicide Ideation-last 6mo Previous Suicide Attempt: No Previous Attempt Previous Psychiatric Illness: Yes Previous Psychiatric Treatment: Yes Risk Assessment & Disposition Evaluated Risk Assessment: Denies current ideation. Says was not serious and just blowing off steam, ho wever multiple comments earlier and alcohol on board, recommend further evaluation by psychiatry. Impression: Primary Impression: Suicidal ideation Additional Impression: Alcohol intoxication Meets Mental Illness Req.: Yes Meets Dangerousness Req.: Yes Emergency Usp to be: Upheld Date of Decision: Aug 17, 2018 Time of Decision: 22:14 Patient is Medically Stable at: Yes Disposition: [facility] Problem Qualifiers Additional Impression: Alcohol intoxication Complication of substance-induced condition: uncomplicated Qualified Codes: F10.920 - Alcohol use, unspecified with intoxication, uncomplicated JUAN M LANDEROS MD Aug 17, 2018 21:31
[2018-08-17 21:42] LABS: PLATELET COUNT, AUTOMATED 231 K/uL (150-450)
[2018-08-17 22:15] VITALS: BP 162/111
== END 2018-08-17 22:33 ==
LOC: ER 21:13
DX: R45.851 Suicidal ideations (principal); F10.920 Alcohol use, unspecified with intoxication, uncomplicated; Y90.8 Blood alcohol level of 240 mg/100 ml or more; F17.210 Nicotine dependence, cigarettes, uncomplicated; F12.10 Cannabis abuse, uncomplicated
CPT/HCPCS: 36415; 80305; 80320; 80329; 81001; 82040; 82247; 82310; 82374; 82435; 82565; 82947; 83735; 84075; 84132; 84155; 84295; 84443; 84450; 84460; 84520; 85025; 99284

== ENCOUNTER 2018-08-17 22:14 | Inpatient (IN) | payer OTHER ==
[2018-08-17] MEDS ORDERED: DIAZEPAM 10 MG TAB PO PRN (22:25)
[2018-08-17] MEDS ORDERED: MAG HYD/AL HYD/SIMETH 30ML UDC PO PRN (23:45)
[2018-08-17] MEDS: DIAZEPAM 10 MG TAB PO PRN (23:51)
[2018-08-18 00:31] VITALS: BP 155/121
[2018-08-18 06:14] VITALS: BP 138/93
[2018-08-18] MEDS: THIAMINE HCL 100 MG TAB PO SCH (08:24)
[2018-08-18] MEDS: FOLIC ACID 1 MG TAB PO SCH (08:24)
[2018-08-18] MEDS: MULTIVITAMINS TAB PO SCH (08:24)
[2018-08-18] MEDS: NICOTINE INH SYSTEM 10 MG/INH INH PRN ×4 (08:38→19:58)
[2018-08-18 10:23] VITALS: BP 152/102
[2018-08-18] MEDS: DIAZEPAM 10 MG TAB PO PRN (12:31)
[2018-08-18] MEDS: NICOTINE CARTRIDGE 1 EA PO PRN ×2 (14:37→18:21)
[2018-08-18 14:38] VITALS: BP 175/128
[2018-08-18 18:10] VITALS: BP 158/110
--- NOTE | 2018-08-18 19:40 | SCHAAF H&P ---
DATE OF ADMISSION: August 17, 2018 ATTENDING PHYSICIAN Ash Clayton MD Patient was seen in the afternoon of 18 August 2018 at approximately 1300 hours. PRESENTING PROBLEM/CHIEF COMPLAINT Patient emergency detained after apparently voicing suicidal ideation as to purposely crash car. Patient intoxicated at the time. HISTORY OF PRESENT ILLNESS This is a 33-year-old male who was notably last on the unit here at [facility] from July 06, 2018, to July 09, 2018, where he was treated for alcohol withdrawal. Patient reports since leaving the facility, patient has been drinking less overall and has gone up to a period of a week or two without drinking at all. Patient comes in emergency detained after voicing to a friend in an alcohol-induced state the aforementioned suicidal thought. Patient reports he was then "lured" over to a girl's house, who had called the mixed signal design engineer to interview him. Patient then became emergency detained. When asked again what patient would have done to have police detain him, patient reports, "I don't really remember." Patient admitting to drinking heavily last night, but now denying any suicidal thoughts. Patient reports he wants to stop drinking altogether because he is trying to establish a better relationship with his daughter. Specific stressors in his life are his continued arndt with alcoholism and that "two females are fighting over me." Patient denying any other symptoms of psychiatric concern. MENTAL HEALTH HISTORY This is the second admission here to [facility], and according to history, the second admission anywhere to a psychiatric ahumada. Reports some outpatient treatment related to alcohol use in the past. Patient is not believed to have followed up successfully when he left this last time from our unit. Patient is believed to be going to and per his verbalization. He had no suicide attempt history. MEDICATIONS Patient recently prescribed hydroxyzine upon discharge from the unit. FAMILY PSYCHIATRIC HISTORY One of patient's half-brothers may have been involved with alcohol and drug use. Mother was involved with alcohol and drug use during her life as well. No other psychiatric history in genetic relatives is known. No suicides in the family. PAST MEDICAL HISTORY Patient has been diagnosed with hypertension in the past and been on medications for it, likely related in part to nicotine and alcohol consumption. ALLERGIES HYDROCODONE, IBUPROFEN, and TRAMADOL. SOCIAL HISTORY Patient was born in [place], raised in the [place] [facility]. It is unknown if parents were together at time of his . Patient reports living with his mother until being placed in a foster home. He states she was unable to care for the multitude of children. Patient reports having four half- brothers and two half-sisters. Patient did graduate from high school. He attempted some college in the past. Patient states he has two girls fighting for his attention at this time. He wants to be in a relationship with only one of them. Patient considers himself heterosexual. He does have approximately a 2-year-old daughter believed to be living with the child's mother. Patient has worked in the past for a [employer] for the last 1-1/2 years overall. Reportedly enjoyed that work. Patient states he is now getting ready to start at [employer] in [place]. LEGAL HISTORY He reports DUI four years ago. No other legal history is known. SUBSTANCE ABUSE HISTORY Patient is drinking alcohol on a daily basis for many years. Patient reports stopping alcohol for up to two weeks since last discharge from our unit. Patient reportedly smokes nicotine heavily. PHYSICAL EXAMINATION Please see emergency room note. GENERAL: Intoxicated, 33-year-old male. No acute medical distress. VITAL SIGNS: At time of admission, temperature 98.7, pulse 79, respiratory rate 17, blood pressure 176/121, pulse oximetry 95% on room air. LABORATORY DATA CBC notable for RBCs elevated at 5.87, hemoglobin and hematocrit elevated at 18.1 and 52.6. Chemistry panel notable for AST elevated at 123. TSH 1.41, normal range. Urinalysis did show small urine blood and urine protein present. Otherwise unremarkable. Toxicology screen negative with a serum alcohol level of 282 upon admission. MENTAL STATUS EXAMINATION GENERAL APPEARANCE, BEHAVIOR, AND ATTITUDE: This is an overall polite, but frustrated, 33-year-old male who is stating he does not need to be on the unit. Patient accepting of information by this provider given that patient will not be discharging today. No bizarre mannerisms or tics. No periods of tearfulness. Some psychomotor agitation, likely associated with alcohol withdrawal. SPEECH: Largely within normal limits. Regular rate, rhythm, volume, and tone. MOOD: Described as frustrated. AFFECT: Mildly constricted and mood congruent. THOUGHT PROCESSES: Appear goal directed, fairly logical overall. No loose associations or flight of ideas. THOUGHT CONTENT: Free of auditory or visual hallucinations, ideas of reference, thought broadcastings, delusions, obsessions, compulsions. Patient adamantly denying suicidal or homicidal ideations. SENSORIUM: Clear. COGNITION: Alert and oriented to person, place, time, and situation. MEMORY: Immediate, recent, and remote estimated intact. INTELLIGENCE: Average based on interview. INSIGHT AND JUDGMENT: Considered grossly intact in the absence of alcohol or illicit substance use. ASSESSMENT This is a 33-year-old male who was recently discharged for alcohol withdrawal treatment in the last month and a half or so. At this time, will evaluate for alcohol withdrawal by [facility] protocol. Patient is emergency detained. Will continue to evaluate mood and potential suicidal ideation and thoughts in the absence of alcohol intoxication. DIAGNOSES PER DIAGNOSTIC AND STATISTICAL MANUAL OF MENTAL DISORDERS, FIFTH EDITION 1. Alcohol intoxication. 2. Alcohol use disorder, severe. 3. Alcohol-induced mood disorder. 4. Partner relational problem. 5. Alcohol withdrawal. 6. Stressors of alcohol use, employment, social, and financial. PLAN 1. Admit to the unit. 2. Necessary precautions will be implemented. 3. Patient will participate in individual and group therapy. 4. Medications for alcohol withdrawal will include diazepam per [facility] protocol. 5. Collateral information to be obtained as necessary. 6. Estimated length of stay three days. MTDD
[2018-08-19 01:12] VITALS: BP 167/115
[2018-08-19 06:34] VITALS: BP 159/111
[2018-08-19] MEDS: NICOTINE INH SYSTEM 10 MG/INH INH PRN (07:31)
[2018-08-19] MEDS: THIAMINE HCL 100 MG TAB PO SCH (07:31)
[2018-08-19] MEDS: FOLIC ACID 1 MG TAB PO SCH (07:31)
[2018-08-19] MEDS: MULTIVITAMINS TAB PO SCH (07:31)
[2018-08-19] MEDS ORDERED: NIC10R INH (13:01)
--- NOTE | 2018-08-19 17:26 | DISCHARGE SUMMARY ---
DATE OF ADMISSION: August 17, 2018 DATE OF DISCHARGE: August 19, 2018 ATTENDING PRACTITIONER Leela Moffett, Psychiatric Nurse Practitioner Patient was seen on the morning of 08/19/2018. FINAL DIAGNOSIS Alcohol use disorder, severe. REASON FOR ADMISSION This is a 33-year-old male admitted to the unit under an emergency snf after it was reported that he made a suicidal statement to a female friend. Patient adamantly denies that he made a suicidal statement, and he adamantly denies that he is having any suicidal thoughts to date, and he is voicing plans for the future. REVIEW OF SYSTEMS Please see emergency room note for complete review of systems. PHYSICAL EXAMINATION VITAL SIGNS: On the day of discharge include temperature 97, pulse 58, blood pressure 159/111, pulse oximetry 94% on room air. Patient reports a history of hypertension and reports that he has a current prescription for antihypertensive medication that he has not been taking. LABORATORY DATA Completed in the Emergency Room showed red blood cell counts at 5.87 and high, hemoglobin at 18.1 and high, hematocrit 52.6 and high. AST high at 123. Alcohol level was 282 on August 17, 2018, at 2135. Salicylates were negative. Acetaminophen level negative. Drug screen negative. MENTAL STATUS EXAMINATION GENERAL APPEARANCE, BEHAVIOR, AND ATTITUDE: This is a 33-year-old male who appears his stated age. Hygiene appears within normal limits. He is pleasant and cooperative. No periods of tearfulness are noted. SPEECH: Clear and spontaneous. Normal rate, rhythm, and volume. MOOD: Reported as good. AFFECT: Rangeful and appropriate. THOUGHT PROCESSES: Overall logical and goal directed. No loose associations or flight of ideas. THOUGHT CONTENT: Patient is adamantly denying any suicidal ideation. He denies homicidal ideation. He is free of any auditory or visual hallucinations. Denies ideas of reference, thought broadcastings, delusions, obsessions, or compulsions. SENSORIUM: Clear. COGNITION: Alert and oriented to person, place, time, and situation. MEMORY: Immediate, recent, and remote estimated grossly intact. INTELLIGENCE: Average based upon interview. INSIGHT AND JUDGMENT: Fair. He is acknowledging that he needs to follow up with an outpatient therapist and reports plan to continue with AA. TREATMENT Patient was monitored with [facility] protocol. He participated in individual, group, and milieu therapy and education. He participated in the treatment team with provider on the morning of discharge. HOSPITAL COURSE Patient was cooperative throughout stay. He continued to maintain that he had no suicidal thoughts. Alcohol withdrawal was minimal. CONDITION OF PATIENT ON DISCHARGE Considered stable and a minimal risk to himself and others, appropriate for outpatient management. DISPOSITION Patient was discharged to home. He is to follow up with [facility] to initiate outpatient therapy. He should follow up with his primary care provider related to hypertension. Patient was discharged with Nicotrol inhalers for smoking cessation. Otherwise, no psychotropic medications. The 24-hour crisis line number was provided should symptoms or problems return. The risks, benefits, and alternatives of the above discharge plan were discussed with client. Again, he is recommended to follow up with AA and NA. Informed consent as given to proceed with the above discharge plan by this competent patient. LADI
== END 2018-08-19 13:45 | disposition home or self-care (01) | DRG 897 ==
LOC: BHS 22:14
PROVIDERS: ADMIT Psychiatry & Neurology Psychiatry; ATTEND Psychiatry & Neurology Psychiatry
DX: F10.24 Alcohol dependence with alcohol-induced mood disorder (principal); I10 Essential (primary) hypertension; Z63.0 Problems in relationship with spouse or partner; Z81.1 Family history of alcohol abuse and dependence; Z81.8 Family history of other mental and behavioral disorders; Z88.5 Allergy status to narcotic agent; Z88.8 Allergy status to other drugs, medicaments and biological substances; Z91.14 Patient's other noncompliance with medication regimen

== ENCOUNTER 2018-10-11 09:18 | Emergency (ER) | payer SELFPAY ==
[~2018-10-11 09:18] MED LIST changes: -GABA-503 PO; +GABA-533 PO
[2018-10-11 09:29] VITALS: BP 141/102
[2018-10-11] MEDS ORDERED: AMOX500T10 PO (09:44)
--- NOTE | 2018-10-11 09:44 | ER Report ---
History and Physical Time Seen By MD: 09:35 Hx. of Stated Complaint: HEAD CONGESTION HPI/ROS CHIEF COMPLAINT: Sinus pressure congestion HISTORY OF PRESENT ILLNESS: 33-year-old male comes emergency Department complaining of sinus pressure congestion the last 2 or 3 days worse when he bends forward primarily localized to the left some palpable percussive tenderness retests face said he was exposed he believes some aerosolized product however subsequently in the last couple days he's had significant sinus pressure with no fever chills or sweats has a past medical history of alcohol and alcohol abuse he admits to drinking last evening. Patient has no shortness of breath cough fever chills chest pain nausea vomiting or diarrhea or additional complaints noted REVIEW OF SYSTEMS: Respiratory: No cough, no dyspnea. Cardiovascular: No chest pain, no palpitations. Gastrointestinal: No vomiting, no abdominal pain. Musculoskeletal: No back pain. Remainder of the 14 system rev: Yes Allergies: Coded Allergies: ibuprofen (Verified Allergy, Intermediate, HIVES, 10/11/18) Home Meds Reported Medications Nicotine (NICOTROL) 10 Mg/Inh Ctr, 10 MG INH PRN PRN for NICOTINE REPLACEMENT 08/19/18 Reviewed Nurses Notes: Yes Old Medical Records Reviewed: Yes Hx Smoking: Yes Smoking Status: Current: Every Day Smoker Exposure to Second Hand Smoke?: Yes (self) Hx Substance Use Disorder: Yes (has started using marijuana medicinally because of a girl he is seeing) Hx Alcohol Use: Yes (has been attending AA and is working on it) Constitutional Vital Sign - Last 24 Hours 10/11/18 09:29 Temp 98.1 Pulse 83 Resp 14 B/P (MAP) 141/102 Pulse Ox 97 O2 Delivery Room Air Physical Exam General Appearance: The patient is alert, has no immediate need for airway protection and no current signs of toxicity. [ ] Eyes: Pupils equal and round no injection. Respiratory: Chest is non tender, lungs are clear to auscultation. Cardiac: regular rate and rhythm [ ] Gastrointestinal: Abdomen is soft and non tender, no masses, bowel sounds normal. Musculoskeletal: Neck: Neck is supple and non tender. Extremities have full range of motion and are non tender. Skin: No rashes or lesions. HEENT examination palpable percussive tenderness in the right maxillary sinuses consistent with a probable sinusitis otherwise unremarkable exam DIFFERENTIAL DIAGNOSIS: After history and physical exam differential diagnosis was considered for sinusitis Medical Decision Making ED Course/Re-evaluation ED Course Medical decision making 33-year-old male history of alcohol abuse comes in with classic symptoms of acute sinusitis I will start him on by mouth antibiotics and primary care follow-up Decision to Disposition Date: Oct 11, 2018 Decision to Disposition Time: 09:42 Depart Departure Latest Vital Signs Vital Signs Date Time Temp Pulse Resp B/P (MAP) Pulse Ox O2 Delivery O2 Flow Rate FiO2 10/11/18 09:29 98.1 83 14 141/102 97 Room Air Impression: Primary Impression: Sinusitis Condition: Improved Disposition: HOME OR SELF-CARE Referrals: SAMANTHA COFFMAN MD 5 Days New Scripts Amoxicillin 500 Mg Tab (AMOXICILLIN 500 MG TAB) 500 Mg Tablet 2 TAB PO Q12H, #56 TAB TAKE TWO TABLETS BY MOUTH EVERY 12 HOURS Prov: ZACH SINCLAIR MD 10/11/18 Patient Instructions: Sinusitis (ED) ZACH SINCLAIR MD Oct 11, 2018 09:44
== END 2018-10-11 09:52 | disposition home or self-care (01) ==
LOC: ER 09:26
DX: J01.90 Acute sinusitis, unspecified (principal); F17.210 Nicotine dependence, cigarettes, uncomplicated
CPT/HCPCS: 99281

== ENCOUNTER 2018-11-19 15:09 | Emergency (ER) | payer SELFPAY ==
[~2018-11-19 15:09] MED LIST changes: +AMOX500T10 PO
--- NOTE | 2018-11-19 15:39 | ER Report ---
History and Physical Time Seen By MD: 15:39 Hx. of Stated Complaint: cough for 3 days, right sided lung pain HPI/ROS CHIEF COMPLAINT: cough HISTORY OF PRESENT ILLNESS: PT has been sick for 3 days with runny nose and cough. cough getting worse. Non productive. + pain in right side of chest with cough and with deep breath. Pt state he is having trouble sleeping due to the cough. no leg pain or swelling. pt has hx of back issues and states the cough is making his chronic back pain worse as well. + chills REVIEW OF SYSTEMS: Constitutional: No fever, + chills. Eyes: No discharge. ENT: No sore throat, + runny nose Cardiovascular: No chest pain, no palpitations. Respiratory: + cough, + shortness of breath. Gastrointestinal: No abdominal pain, no vomiting. Genitourinary: No hematuria. Musculoskeletal: + back pain. Skin: No rashes. Neurological: No headache. Allergies: Coded Allergies: ibuprofen (Verified Allergy, Intermediate, HIVES, 10/11/18) Home Meds Active Scripts Amoxicillin 500 Mg Tab (AMOXICILLIN 500 MG TAB) 500 Mg Tablet, 2 TAB PO Q12H, #56 TAB TAKE TWO TABLETS BY MOUTH EVERY 12 HOURS Prov:ZACH SINCLAIR MD 10/11/18 Reported Medications Nicotine (NICOTROL) 10 Mg/Inh Ctr, 10 MG INH PRN PRN for NICOTINE REPLACEMENT 08/19/18 Past Medical/Surgical History Pmhx: htn, back pain, polysubstance abuse, alcohol abuse, anxiety Reviewed Nurses Notes: Yes Hx Smoking: Yes Smoking Status: Current: Every Day Smoker Exposure to Second Hand Smoke?: Yes (self) Hx Substance Use Disorder: Yes Hx Alcohol Use: Yes (has been attending AA and is working on it) Constitutional Vital Sign - Last 24 Hours 11/19/18 11/19/18 11/19/18 15:21 17:00 17:30 Temp 98.0 Pulse 100 77 78 Resp 18 B/P (MAP) 149/100 138/99 (112) Pulse Ox 95 90 92 O2 Delivery Room Air Physical Exam General Appearance: The patient is alert, has no immediate need for airway protection and no signs of toxicity. Eyes: Pupils equal and round no pallor or injection, EOMI ENT: no pharyngeal erythema or exudates, Mucous membranes are moist, TM are nl b/l Respiratory: There are no retractions, lungs are clear to auscultation, + decreased breathsounds Cardiovascular: Regular rate and rhythm. pulses are equal and symmetrical Gastrointestinal: Abdomen is soft and non tender, no masses, bowel sounds normal, no guarding, no rigidity or rebound Neurological: Cranial nerves II-XII grossly intact, no sensory or motor loss Skin: Warm and dry, no rashes. Musculoskeletal: Neck is supple non tender, no vertebral tenderness Extremities are nontender, non swollen and have full range of motion. DIFFERENTIAL DIAGNOSIS: After history and physical exam differential diagnosis was considered for bronchitis, pneumonia, PE Medical Decision Making Data Points Laboratory Hematology Test 11/19/18 15:50 11/19/18 16:40 Influenza Virus Type A (PCR) Negative (NEGATIVE) Influenza Virus Type B (PCR) Negative (NEGATIVE) D-Dimer Quantitative (PE/DVT) 1.79 ug/ml (0-0.50) Chemistry Test 11/19/18 15:50 11/19/18 16:40 Influenza Virus Type A (PCR) Negative (NEGATIVE) Influenza Virus Type B (PCR) Negative (NEGATIVE) D-Dimer Quantitative (PE/DVT) 1.79 ug/ml (0-0.50) Coagulation Test 11/19/18 16:40 D-Dimer Quantitative (PE/DVT) 1.79 ug/ml EKG/Imaging Imaging see reports ED Course/Re-evaluation ED Course check flu and influenza 11/19/2018 4:37:14 pm Pt still with cough and pain on right lung with the cough. PTs xray does not show pneumonia but there was a question of nipple vs nodule. Will check D-dimer due to pleuritic chest pain. If positvie will require CT and can hold off on repeat cxr. 11/19/2018 6:36:[address] shows now pe but does have early pneumonia as well as nodules. PT is a smoker. I spoke to pt at length about the nodules and need for follow up. Pt states he will stop smoking and will get the repeat ct in next 3-6 months as suggested. Decision to Disposition Date: Nov 19, 2018 Decision to Disposition Time: 18:37 Depart Departure Latest Vital Signs Vital Signs Date Time Temp Pulse Resp B/P (MAP) Pulse Ox O2 Delivery O2 Flow Rate FiO2 11/19/18 17:30 78 138/99 (112) 92 11/19/18 15:21 98.0 18 Room Air Impression: Primary Impression: Community acquired bacterial pneumonia Condition: Improved Disposition: HOME OR SELF-CARE New Scripts Azithromycin (ZITHROMAX) 250 Mg Tablet 1 TAB PO QDAY, #6 TAB 2 pills 500mg tomorrow then 1 pill once a day for next 4 days. Prov: AVELINA BA DO 11/19/18 Patient Instructions: Community Acquired Pneumonia (ED) Additional Instructions: Your cat scan today showed pneumonia. 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 Your cat scan also showed a nonspecific nodule in your lung. You need to have a repeat cat scan in 3-6 months to check on the nodule. Stop smoking. AVELINA BA DO Nov 19, 2018 15:39
[2018-11-19] MEDS ORDERED: CHLORPH/HYDROCOD SUSP CR 5 ML PO ONE (15:45)
--- NOTE | 2018-11-19 16:21 | RADIOLOGY IMAGING REPORT ---
FACILITY: [facility] PATIENT NAME: Ezekiel Unger : 1985 MR: [id number] V: [id number] EXAM DATE: ORDERING PHYSICIAN: AVELINA BA TECHNOLOGIST: Location: [facility] Patient: Ezekiel Unger : 1985 Visit/Account:[id number] Date of Sevice: 11/19/2018 2 VIEWS CHEST INDICATION: Cough and shortness of breath. COMPARISON: 03/15/2018. FINDINGS: Cardiomediastinal silhouette and pulmonary vessels within normal limits. There is no focal infiltrate or lobar consolidation. There is no pneumothorax or pleural effusion. Small nodular opacity in the right lower lobe which is not seen previously. No other nodules. Upper abdomen is unremarkable. No acute bony abnormality. IMPRESSION: 1. No acute cardiopulmonary process. 2. Small nodular opacity seen in the right lower lobe. This is not seen on the previous exam. Unsure if this is due to the nipple or overlapping vasculature. A follow-up bilateral shallow oblique view o f the PA chest with nipple markers can further evaluate. Report Dictated By: Sloan Amador at 11/19/2018 4:14 PM Report E-Signed By: Sloan Amador at 11/19/2018 4:17 PM WSN:[id number]
[2018-11-19] MEDS ORDERED: IOPAMIDOL 76% 100 ML INFUS BTL 100 ML ONE (17:20)
[2018-11-19] MEDS ORDERED: NS(*) 0.9% 50 ML BAG 50 ML ONE (17:20)
--- NOTE | 2018-11-19 18:01 | RADIOLOGY IMAGING REPORT ---
FACILITY: [facility] [place] PATIENT NAME: Ezekiel Unger : 1985 MR: [id number] V: [id number] EXAM DATE: ORDERING PHYSICIAN: AVELINA BA TECHNOLOGIST: Location: [facility] [place] Patient: Ezekiel Unger : 1985 Visit/Account:[id number] Date of Sevice: 11/19/2018 CT angiogram chest with contrast Indication: Right-sided pleuritic chest pain. Shortness breath. Cough. History smoking. Comparison: 03/15/2018. Technique: Axial CT images are obtained through the chest after administration of 90 mL Isovue 370 IV contrast. Reformatted coronal and sagittal images were reviewed as well as coronal MIP images. One of the following dose optimization techniques was utilized in the performance of this exam: auto mated exposure control; adjustment of the mA and/or kV according to the patient's size; or use of an iterative reconstruction technique. Specific details can be referenced in the facility's radiology C T exam operational policy. FINDINGS: No evidence of filling defect within the pulmonary vasculature to suggest pulmonary embolus. Heart is normal size without pericardial effusion. Aorta shows no aneurysm or dissection. Mediastinum and hilar regions show no enlarged lymph nodes or abnormal density. There is patchy interstitial opacities seen in the posterior inferior right lower lobe along the fiss ure without focal consolidation. There is an adjacent soft tissue nodule measuring 8 x 5 mm which is some solid on image #41 and series 5. The anterolateral right middle lobe does show a pleural-based 4 x 4 mm nodule on image #55. The posterior superior left lower lobe shows a and medial airspace opaci ty measuring 1.9 x 1.1 cm. There is a couple subcentimeter nodules posterior and inferior to this opa city seen on image #57 and 54 no other consolidations or discrete nodules. No pleural effusion or pne umothorax. The airways are clear. Bony structures show no acute fractures or aggressive bony lesions. Chest wall shows no enlarged axil jerome lymph nodes or masses. Limited views of the upper abdomen are unremarkable. IMPRESSION: 1. No evidence of pulmonary embolus. 2. Patchy airspace opacities along the posterior inferior right lower lobe which could represent zoran y pneumonia. There is a subsolid nodule anterior to this area measuring 8 mm which is nonspecific. Th ere is also focal airspace opacity seen in the medial aspect of the left lower lobe and the superior region with a couple adjacent nodules. There is also a pleural-based right middle lobe nodule. At thi s point these are nonspecific. The opacities could be secondary to pneumonia. However suggest a follo w-up exam after medical therapy to evaluate for clearing or other etiologies such as underlying paren chymal abnormality. The nodules can also be reevaluated at that time. Otherwise suggest follow up for nodules per Fleischner guidelines described below. FLEISCHNER SOCIETY FOLLOW-UP GUIDELINES FOR NEWLY DETECTED INCIDENTAL NODULES IN PERSONS 35 YEARS OF AGE OR OLDER. *These recommendations do NOT apply to lung cancer screening, patients with immunosuppression or danish ents with a known primary malignancy. MULTIPLE SUBSOLID NODULES If nodule size is < 6 mm: * CT at 3-6 months to confirm persistence, then consider CT at 2 and 4 years in selected high risk p atients. If nodule size is > or equal to 6 mm: * CT at 3-6 months to confirm persistence. Subsequent management based on the most suspicious nodul e(s). LOW RISK PATIENT: Minimal or absent history of tobacco use and of other known risk factors. HIGH RISK PATIENT: Tobacco use, family history of lung cancer, upper pulmonary lobe location of nodul e, presence of emphysema, pulmonary fibrosis, older age. Warner H, Srikanth DP, Judy ALVA, et al. Guidelines for Management of Incidental Pulmonary Nodules Dete cted on CT Images: From the Fleischner Society 2017. Radiology. [facility] Report Dictated By: Sloan Amador at 11/19/2018 5:39 PM Report E-Signed By: Zacarias Amador at 11/19/2018 5:58 PM WSN:[id number]
[2018-11-19] MEDS ORDERED: AZITHROMYCIN 250 MG TAB PO ONE (18:35)
[2018-11-19 18:41] VITALS: BP 105/93
[2018-11-19] MEDS ORDERED: AZIT-1 PO (18:41)
[2018-11-19] MEDS ORDERED: GUAI120L3 PO (18:41)
== END 2018-11-19 18:50 | disposition home or self-care (01) ==
LOC: ER 15:45
DX: J15.9 Unspecified bacterial pneumonia (principal)
CPT/HCPCS: 71046; 71275; 85379; 87502; 99284; J7050; Q0144; Q9967

== ENCOUNTER 2018-11-23 07:33 | Emergency (ER) | payer SELFPAY ==
[~2018-11-23 07:33] MED LIST changes: +AZIT-1 PO; +GUAI120L3 PO
[2018-11-23] MEDS ORDERED: BP MED (07:43)
--- NOTE | 2018-11-23 07:48 | ER Report ---
History and Physical Time Seen By MD: 07:40 Hx. 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 gETTING PROGRESSIVELY WORSE OVER THE LAST 10 DAYS. RECENTLY DX WITH PNEUMONIA HPI/ROS Was carrying an A/C unit with a co-worker when his co-worker lost his balance, and left the pt. carrying the weight of the unit. Has had low back pain since. No changes in bowel/bladder. He did not Fall. No neuro deficits Remainder of the 14 system rev: Yes Allergies: Coded Allergies: ibuprofen (Verified Allergy, Intermediate, HIVES, 10/11/18) Home Meds Active Scripts Ibuprofen (IBUPROFEN) 600 Mg Tablet, 1 TAB PO Q6H for 10 Days, #30 TAB Prov:ROSALIE BASSETT MD 11/23/18 Cyclobenzaprine Hcl (CYCLOBENZAPRINE HCL) 10 Mg Tablet, 10 MG PO TID, #9 TAB 0 Refills Prov:ROSALIE BASSETT MD 11/23/18 Guaifenesin/Codeine Phosphate (Codeine-Guaifen 10-100 mg/5 ml) 120 Ml Liquid, 10 ML PO Q4-6H PRN for COUGH, #120 ML Prov:VAELINA BA V DO 11/19/18 Azithromycin (ZITHROMAX) 250 Mg Tablet, 1 TAB PO QDAY, #6 TAB 2 pills 500mg tomorrow then 1 pill once a day for next 4 days. Prov:AVELINA BA V DO 11/19/18 Reported Medications [Bp Med] No Conflict Check 11/23/18 Discontinued Reported Medications Nicotine (NICOTROL) 10 Mg/Inh Ctr, 10 MG INH PRN PRN for NICOTINE REPLACEMENT 08/19/18 Discontinued Scripts Amoxicillin 500 Mg Tab (AMOXICILLIN 500 MG TAB) 500 Mg Tablet, 2 TAB PO Q12H, #56 TAB TAKE TWO TABLETS BY MOUTH EVERY 12 HOURS Prov:ZACH SINCLAIR MD 10/11/18 Hx Smoking: Yes Smoking Status: Current: Every Day Smoker Exposure to Second Hand Smoke?: Yes (self) Hx Substance Use Disorder: Yes Hx Alcohol Use: Yes (has been attending AA and is working on it) Constitutional Vital Sign - Last 24 Hours 3/7/19 3/7/19 3/7/19 3/7/19 07:38 09:51 10:00 10:38 Temp 98.3 Pulse 76 52 Resp 20 B/P (MAP) 151/111 154/106 (122) 159/105 (123) 158/106 (123) Pulse Ox 94 91 O2 Delivery Room Air 11/23/18 11:00 Pulse 50 B/P (MAP) 151/97 (115) Pulse Ox 94 Physical Exam General appearance: alert no distress. Back: Thoracic spine has no spinal or paraspinal tenderness to palpation. Lumbar spine has mild midline TTP Gastroinal: Abdomen is soft, non tender, no masses.. Skin: No lesions and no rashes. Vascular: Normal capillary refill and pulses to feet. Neurological: Motor function: leg strength normal and symmetric for both legs Sensory function: normal for all leg dermatomes. Straight leg raise negative to 70 degrees. Reflexes normal bilaterally on legs. DIFFERENTIAL DIAGNOSIS: After history and physical exam differential diagnosis was considered for back pain including muscular strain, herniated disc, intra- abdominal and renal causes. Medical Decision Making ED Course/Re-evaluation ED Course Normal neuro exam. No abdominal pain, hematuria, IVDA, no fever/chills. xrays show no emergenct/acute findings. No need for further imaging. Improved with ED treatment. Place on light duty. If symptoms continue will follow up with PBJ or PCM and will likely need MRI Decision to Disposition Date: Nov 23, 2018 Decision to Disposition Time: 11:44 Depart Departure Latest Vital Signs Vital Signs Date Time Temp Pulse Resp B/P (MAP) Pulse Ox O2 Delivery O2 Flow Rate FiO2 11/23/18 11:00 50 151/97 (115) 94 11/23/18 07:38 98.3 20 Room Air Impression: Primary Impression: Low back pain Condition: Improved Disposition: HOME OR SELF-CARE Referrals: LAUREL CERDA MD New Scripts Ibuprofen (IBUPROFEN) 600 Mg Tablet 1 TAB PO Q6H for 10 Days, #30 TAB Prov: ROSALIE BASSETT MD 11/23/18 Cyclobenzaprine Hcl (CYCLOBENZAPRINE HCL) 10 Mg Tablet 10 MG PO TID, #9 TAB 0 Refills Prov: ROSALIE BASSETT MD 11/23/18 Patient Instructions: Acute Low Back Pain (ED) Problem Qualifiers Primary Impression: Low back pain Chronicity: acute Back pain laterality: midline Sciatica presence: without sciatica Qualified Codes: M54.5 - Low back pain ROSALIE BASSETT MD Nov 23, 2018 07:47
[2018-11-23] MEDS ORDERED: KETOROLAC 30 MG/ML VIAL IVP ONE (09:05)
[2018-11-23] MEDS ORDERED: DEXAMETHASONE SOD PHOS 10MG/ML IVP ONE (09:05)
--- NOTE | 2018-11-23 10:04 | RADIOLOGY IMAGING REPORT ---
FACILITY: [facility] PATIENT NAME: Ezekiel Unger : 1985 MR: [id number] V: [id number] EXAM DATE: ORDERING PHYSICIAN: ROSALIE BASSETT TECHNOLOGIST: Location: [facility] - [place] Patient: Ezekiel Unger : 1985 Visit/Account:[id number] Date of Sevice: 11/23/2018 EXAMINATION: Thoracic spine, 3 views Lumbar spine, 3 views 11/23/2018 9:03 AM HISTORY: carrying heavy load at work and now with midline pain COMPARISON: Chest CTA for PE 11/19/2018. Thoracic spine plain films 04/19/2016. Lumbar spine MRI 016 FINDINGS: Thoracic spine: Mild levoscoliotic lower thoracic curvature with the apex at T8-9 is similar to previ ous. Thoracic vertebral body heights are well-preserved. No acute bony injury evident. Pedicles an d posterior elements are unremarkable. Negative paraspinous soft tissue contours. Lumbar spine: 5 nonrib-bearing lumbar vertebral levels. Vertebral body heights are well-preserved. Disc height loss at L4-5. Alignment is normal. No acute bony injury. IMPRESSION: 1. Stable slight levoscoliotic lower thoracic curvature. No acute bony finding in the thoracic spin e. 2. No acute bony injury in the lumbar spine. Mild L4-5 disc height loss without clear progression c omparing with lumbar MR 05/21/2016. Report Dictated By: Dannie Christianson MD at 11/23/2018 9:56 AM Report E-Signed By: Dannie Christianson MD at 11/23/2018 10:01 AM WSN:[email or web address]
--- NOTE | 2018-11-23 10:05 | RADIOLOGY IMAGING REPORT ---
FACILITY: [facility] PATIENT NAME: Ezekiel Unger : 1985 MR: [id number] V: [id number] EXAM DATE: ORDERING PHYSICIAN: ROSALIE BASSETT TECHNOLOGIST: Location: [facility] Patient: Ezekiel Unger : 1985 Visit/Account:[id number] Date of Sevice: 11/23/2018 EXAMINATION: Thoracic spine, 3 views Lumbar spine, 3 views 11/23/2018 9:03 AM HISTORY: carrying heavy load at work and now with midline pain COMPARISON: Chest CTA for PE 11/19/2018. Thoracic spine plain films 04/19/2016. Lumbar spine MRI 016 FINDINGS: Thoracic spine: Mild levoscoliotic lower thoracic curvature with the apex at T8-9 is similar to previ ous. Thoracic vertebral body heights are well-preserved. No acute bony injury evident. Pedicles an d posterior elements are unremarkable. Negative paraspinous soft tissue contours. Lumbar spine: 5 nonrib-bearing lumbar vertebral levels. Vertebral body heights are well-preserved. Disc height loss at L4-5. Alignment is normal. No acute bony injury. IMPRESSION: 1. Stable slight levoscoliotic lower thoracic curvature. No acute bony finding in the thoracic spin e. 2. No acute bony injury in the lumbar spine. Mild L4-5 disc height loss without clear progression c omparing with lumbar MR 05/21/2016. Report Dictated By: Dannie Christianson MD at 11/23/2018 9:56 AM Report E-Signed By: Dannie Christianson MD at 11/23/2018 10:01 AM WSN:[email or web address]
[2018-11-23] MEDS ORDERED: DIAZEPAM 5 MG TAB PO ONE (10:40)
[2018-11-23] MEDS ORDERED: APAP/HYDROCODONE 325/5 TAB PO ONE (10:40)
[2018-11-23 11:00] VITALS: BP 151/97
[2018-11-23] MEDS ORDERED: LIDOCAINE 5% PATCH TP SCH (11:45)
[2018-11-23] MEDS ORDERED: CYCL10TA29 PO (11:47)
[2018-11-23] MEDS ORDERED: IBUP600T22 PO (11:47)
[2018-11-23] MEDS ORDERED: PATCH REMOVAL 1 EA TOP SCH (21:00)
== END 2018-11-23 12:16 | disposition home or self-care (01) ==
LOC: ER 07:56
DX: M54.5 Low back pain (principal); X50.0XXA Overexertion from strenuous movement or load, initial encounter; Y99.0 Civilian activity done for income or pay; F17.200 Nicotine dependence, unspecified, uncomplicated
CPT/HCPCS: 72072; 72100; 96374; 96375; 99283; J1100; J1885

== ENCOUNTER 2019-02-27 00:41 | Day surgery (SDC) | payer OTHER ==
--- NOTE | 2019-02-26 11:48 | NUR ---
LEFT MESSAGE WITH PB&J STATING PATIENT MAY NEED TO BE ADMITTED AFTER THE PROCEDURE FOR ALCOHOL WITHDRAWAL.
[2019-02-27] VITALS (7 sets, daily range): BP systolic 133–150; BP diastolic 89–114
[~2019-02-27] VITALS: Ht 190.5 cm; Wt 86.2 kg
[~2019-02-27 00:41] MED LIST changes: +IBUP600T22 PO
[2019-02-27] MEDS ORDERED: NORMOSOL R SOLN(*) 1000 ML BAG 1,000 ML IV PRN (06:00)
[2019-02-27] MEDS ORDERED: FAMOTIDINE 20 MG TAB PO ONE (06:00)
[2019-02-27] MEDS ORDERED: MIDAZOLAM 2 MG/2 ML VIAL IVP PRN (06:00)
[2019-02-27] MEDS ORDERED: LIDOCAINE/SOD BICARB 8.4% SYR ID ONE (06:00)
[2019-02-27] MEDS ORDERED: ceFAZolin(*) 2GM/D5W 50ML 50 ML IVPB ONE (06:00)
[2019-02-27] MEDS ORDERED: ROPIVACAINE 0.2% 20 ML VIAL ONE (07:13)
[2019-02-27] MEDS ORDERED: PROPOFOL EMUL(*) 10MG/ML 20 ML 40 ML ONE (07:32)
[2019-02-27] MEDS ORDERED: ONDANSETRON 4 MG/2 ML VIAL ONE (07:32)
[2019-02-27] MEDS ORDERED: DEXAMETHASONE SOD PHOS 10MG/ML ONE (07:32)
[2019-02-27] MEDS ORDERED: fentaNYL CITR 100 MCG/2 ML AMP ONE ×3 (07:43→09:52)
[2019-02-27] MEDS ORDERED: HYDR-653 PO (08:58)
[2019-02-27] MEDS ORDERED: LABETALOL HCL 25 MG/5 ML SYRINGE ONE (08:59)
--- NOTE | 2019-02-27 09:14 | OPERATIVE REPORT 1 ---
EVENT DATE: February 27, 2019 SURGEON: Jez Flores MD ANESTHESIOLOGIST: Kei Khalil MD ANESTHESIA: General, LMA SUBSTATION SUPERINTENDENT: Omar Whitney PA-C PREOPERATIVE DIAGNOSIS Right fifth finger chronic nerve laceration. POSTOPERATIVE DIAGNOSIS Right fifth finger chronic nerve laceration. PROCEDURE PERFORMED 1. Right fifth finger chronic nerve laceration direct microscopic nerve repair of the nerve with removal of scar tissue. 2. This procedure deserves a modifier 22 secondarily due to the fact that it took time and a half the surgeon skill and effort, secondarily due to the fact of the chronicity of the nerve laxity since it had been cut for months, in order to dissect through all of the tissue and to get it back repaired. FINDINGS The patient had a cut nerve with the two ends that were scarred into the area and a massive amount of scar tissue in the PIP joint. ESTIMATED BLOOD LOSS Minimal. DRAINS None. SPECIMENS None. COMPLICATIONS None. TOURNIQUET TIME About 45 minutes but we did let it down near the end of the case in order to make sure there was no arterial bleeder. IMPLANTS USED 8-0 Nylon suture to repair the nerve with 4 knots total. INDICATIONS AND HISTORY This patient is a 33-year-old male that presented to my clinic for evaluation for right fifth finger digital nerve laceration. 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 He saw Dr. Salas initially and then was referred to me. I told him there was no guarantee that we could make it better, but that I could definitely go in and cut the ends of the nerve and try and put them back together in order to try and do a direct nerve repair sometimes with a neural conduit. We went over the risk and benefits and I told him once again, he may still have problems and issues associated with it and he may not get sensation back, but he said he was willing to try that. DESCRIPTION OF PROCEDURE As the patient was brought into the operating room, he and the procedure were both verified. He was placed supine on the operative table and induced and intubated by Anesthesia. The right upper extremity was then prepped and draped in the usual fashion and a timeout was observed verifying the correct patient and procedure. I made a Cedric's type incision over the PIP joint with the point apex towards the ulnar side. Once I was able to go through the skin and subcutaneous tissue, I was then able to dissect some of the scar tissue. There was a significant amount of scar tissue around the nerves themselves. I was able to identify the nerves proximally and distally, but then after careful dissection which was very tedious in order to get over the entire aspects of the nerve, I was then able to identify the 2 never ends that were cut and then identified the neuromas that had formed on the ends of each side. Once I was able to do this, I was then able to remove those and then utilizing loops with a microscopic technique, I was able to then use an 8-0 Nylon to repair the digital nerve in the area. We put four 8-0 Nylon sutures through the nerve itself in order to repair it with a good end-to-end repair with no undo tension. Once I was able to do this, I was then able to irrigate with copious amounts of saline. We let the tourniquet down and then I was able to irrigate with saline once again. There was just some small vessel bleeders, but no signs of arterial bleeding and so therefore we then put the tourniquet back up, dried out the wound and then closed the skin with a 4-0 Nylon interrupted mattress fashion at the corner of the Cedric's incision and then simple sutures through the middle portion. I was then able to flex and extend the finger. There were no signs of problems or issues associated with this and then we dressed with Xeroform gauze 4 x 4s and an ulnar gutter splint. The tourniquet was let down after about 45 minutes and the patient was awakened, extubated and transferred to the PACU under stable condition. LADI
[2019-02-27] MEDS ORDERED: hydrALAZINE HCL 20 MG/ML VIAL ONE (09:24)
[2019-02-27] MEDS ORDERED: APAP/HYDROCODONE 325/5 TAB ONE (09:36)
== END 2019-02-27 10:11 | disposition home or self-care (01) ==
LOC: OR 00:41
PROVIDERS: ATTEND Orthopaedic Surgery
DX: S64.496A Injury of digital nerve of right little finger, initial encounter (principal)
CPT/HCPCS: 36415; 64834; 80305; 80320; A4565; J0360; J1100; J2250; J2405; J2704; J2795; J3010